=== PATIENT | female | born 1970 | race Caucasian/White ===

== ENCOUNTER → 2020-01-26 15:48 | Outpatient (CLI) | payer OTHER, SELFPAY ==
--- NOTE | ~2020-01-26 | MM_ITS ---
EXAMINATION: MM screening ada BI w anoop HISTORY: Screening mammogram TECHNIQUE: Craniocaudal and mediolateral oblique 3-D tomosynthesis images were obtained and synthetic 2-D images were generated. CAD analysis was submitted and interpreted. COMPARISON: Comparison to multiple prior studies sequentially, with oldest reviewed study dated 07/2014. BREAST PARENCHYMAL COMPOSITION: There are scattered areas of fibroglandular density. FINDINGS: There is no evidence of suspicious mass, calcification, or architectural distortion to sugg est malignancy in either breast. There has been no suspicious interval change. IMPRESSION: 1. No mammographic evidence of malignancy. 2. Recommend routine screening mammography in one year. BI-RADS Category 1: Negative Reviewed, dictated and finalized at location A.
== END ==
PROVIDERS: PCP Family Medicine; Visit Provider Obstetrics & Gynecology
DX: Z12.31 Encounter for screening mammogram for malignant neoplasm of breast (principal)
CPT/HCPCS: 77063; 77067

== ENCOUNTER 2020-04-29 15:32 | Emergency (ER) | payer OTHER, SELFPAY ==
[2020-04-29] VITALS (19 sets, daily range): BP systolic 105–138; BP diastolic 45–78; PULSE 83–122; RESP 11–35; TEMP 36.8; O2SAT 84–100
--- NOTE | ~2020-04-29 | XR_ITS ---
EXAMINATION: XR chest 2V DATE: 04/29/2020 16:18 INDICATION: Chest pain, nausea and dizziness TECHNIQUE: PA and lateral views of the chest were obtained. COMPARISON: None FINDINGS: The lungs are clear with no focal airspace opacities, pulmonary edema, pleural effusion or pneumothor ax. The cardiomediastinal silhouette is normal. Post cystectomy clips in the right upper quadrant. IMPRESSION: 1. No acute cardiopulmonary disease. Reviewed, dictated and finalized at location A.
--- NOTE | 2020-04-29 15:35 | ECG_ITS ---
Measurements Intervals [place] Rate: 120 P: 57 AR: 151 QRS: 67 QRSD: 115 T: 59 QT: 328 QTc: 465 Interpretive Statements SINUS TACHYCARDIA INTRAVENTRICULAR CONDUCTION DELAY ABNORMAL ECG Electronically Signed On 04-30-2020 8:20:53 CDT by Man Leung D.O.
[2020-04-29 15:50] LABS: Basophils Absolute Auto 0.1 K/mm3 (0.0-0.1); Basophils Percent Auto 0.5 % (0.2-1.2); Eosinophils Absolute Auto 0.2 K/mm3 (0-0.3); Eosinophils Percent Auto 1.9 % (0-4.4); Hematocrit 39.8 % (37.0-47.0); Hemoglobin 14.1 g/dL (12.0-15.0); Immature Granulocyte Absolute 0.02 K/mm3 (0.00-0.031); Immature Granulocyte Percent A 0.2 % (0-0.5); Lymphocytes Absolute Auto 2.82 K/mm3 (0.9-3.2); Lymphocytes Percent Auto 25.5 % (18.3-44.2); Mean Corpuscular HGB Conc 35.4 g/dl (32-36); Mean Corpuscular Hemoglobin 31.8 pg (26-34); Mean Corpuscular Volume 89.6 fl (80-100); Mean Platelet Volume 9.8 fl (7.4-10.4); Monocytes Absolute Auto 0.9 K/mm3 (0.1-0.6); Monocytes Percent Auto 8.3 % (2.6-8.5); Neutrophils Absolute Auto 7.1 K/mm3 (1.3-6.7); Neutrophils Percent Auto 63.6 % (45.5-73.1); Platelet Count Result 217 k/mm3 (150-375); Red Blood Count 4.44 M/mm3 (4.2-5.4); Red Cell Distribution Width 12.4 % (11.5-14.5); White Blood Count 11.1 K/mm3 (4.5-10.0)
--- NOTE | 2020-04-29 15:50 | ED.CHESTPAIN ---
HPI - Chest Pain General Chief Complaint: Chest Pain Stated Complaint: cp/nausea Time Seen by Provider: 04/29/20 15:40 Source: RN notes reviewed History of Present Illness HPI narrative: Patient presents emergency department from home for heart racing and chest pain. Patient states approximately 45 minutes prior to arrival she began to feeling like her heart was racing as well as some chest pressure and feeling of shortness of breath. She also noticed tingling in her upper and lower extremities and some nausea. States she has a history of anxiety and took a Xanax at that time 0.5 mg as she did feel very anxious. She denies any fevers or chills vomiting diarrhea or any other symptoms. Related Data Allergies Allergy/AdvReac Type Severity Reaction Status Date / Time No Known Allergies Allergy Verified 04/29/20 15:40 Review of Systems Review of Systems: Narrative: Gen.: Denies fevers or chills Eyes: Denies eye pain or visual change ENT: Denies congestion Respiratory: For shortness of breath CV: See HPI GI: Denies abdominal pain emesis or diarrhea, reports nausea Musculoskeletal: Denies back pain or muscle pain Neuro: Denies numbness, tingling, weakness or focal weakness Skin: Denies rash Except as documented, all other systems reviewed and negative [facility] Past Medical History Medical History (Updated 04/30/20 @ 00:00 by Gerardo Damyke) Anxiety Family History Family History (Updated 10/19/13 @ 14:36 by DOCTOR UNKNOWN) Other Family history of Hodgkin's lymphoma Social History Social History Smoking status: Never smoker Alcohol intake: current Exam Narrative: Exam Narrative: APPEARANCE: Anxious in appearance nontoxic, resting in bed EYES: EOMI HEENT: Normocephalic, atraumatic, OMM RESPIRATORY: No respiratory distress Clear to auscultation bilaterally with no rhonchi wheezing or rales. CARDIOVASCULAR: Regular rate and rhythm without murmurs rubs or gallops. ABDOMINAL: Soft, nontender, nondistended, no rebound or guarding MUSCULOSKELETAl: Moves all extremities. No clubbing, cyanosis or edema. NEURO: Awake and alert. Following commands, speech normal, no focal deficits SKIN:: Warm, dry. No rashes lesions or abrasions PSYCHIATRIC: Anxious in appearance Course Course Emergency Course: Patient states symptoms have resolved following fluids I did not administer any further antianxiety medicine as she had just taken her 0.5 mg Xanax at home Discussed with patient results of workup and diagnosis. Discussed need for follow-up with primary care, proper use of medication, and reasons to return to the emergency department. Patient understands and agrees to current treatment plan Vital Signs Vital signs: Vital Signs Temperature 98.3 F 04/29/20 15:35 Pulse Rate 122 H 04/29/20 15:35 Respiratory Rate 18 04/29/20 15:35 Pulse Oximetry 100 04/29/20 15:35 Temperature 98.3 F 04/29/20 15:35 Pulse Rate 83 04/29/20 19:30 Respiratory Rate 16 04/29/20 19:30 Blood Pressure 111/68 04/29/20 19:30 Pulse Oximetry 99 04/29/20 19:30 MDM - Chest Pain MDM Narrative Medical decision making narrative: Patient's EKGs and labs are without significant high risk changes. Cardiac risk factors reviewed. Patient is felt likely low risk for ACS and reasonable for further risk stratification testing as an outpatient. Pain was not sudden or maximal in onset without tearing or ripping quality. No other signs of symptoms suggest aortic dissection. A low-risk Wells criteria is noted, PE is felt to be unlikely. No pneumonia seen on evaluation today. Patient is felt to be a reasonable candidate for continued evaluation as an outpatient Lab Data Result diagrams: 04/29/20 15:42 04/29/20 15:42 Labs: Lab Results 04/29/20 04/29/20 04/29/20 Range/Units 15:42 15:42 15:42 WBC 11.1 H (4.5-10.0) K/mm3 RBC 4.44 (4.2-5.4) M/mm3
--- NOTE | 2020-04-29 15:53 | PC.NURSE ---
Called lab to add on hepatic, d dimer, and lip
[2020-04-29] MEDS: SODIUM CHLORIDE 0.9% IV 1,000 ML 999 ML IV CONT ×2 (15:54→17:59)
[2020-04-29] MEDS: ASPIRIN 81 MG CHEWABLE TABLET 324 MG PO (15:54)
[2020-04-29 15:57] LABS: Prothrombin Time 13.1 Seconds (11.1-14.7)
[2020-04-29 15:58] LABS: Partial Thromboplastin Time 30.7 SECONDS (22.3-36.8)
[2020-04-29 16:00] LABS: Alanine Aminotransferase 16 U/L (4-35); Albumin Level 4.2 g/dL (3.5-5.1); Alkaline Phosphatase 58 U/L (38-126); Anion Gap 9 mmol/L (8-16); Aspartate Amino Transferase 22 U/L (14-36); Bilirubin,Total 0.6 mg/dL (0.2-1.3); Blood Urea Nitrogen 18 mg/dL (7-17); Calcium 9.4 mg/dL (8.4-10.2); Carbon Dioxide 27 mmol/L (22-30); Chloride 101 mmol/L (98-107); D Dimer 0.45 ug/mL (<0.48); Estimated CRCL calculation 76 ml/min; Estimated Glomerular Filt Rate > 60; Glucose 138 mg/dL (65-105); Lipase 73 U/L (23-300); Potassium 2.9 mmol/L (3.4-5.0); Sodium 137 mmol/L (137-145)
[2020-04-29 16:11] LABS: Troponin I < 0.012 ng/mL (0.000-0.034)
[2020-04-29 16:26] LABS: Add Urine Microscopic? YES; Appearance Urine Clear (Clear); Bilirubin Urine Negative (Negative); Blood Urine 2+ (Negative); Color Urine Yellow (Yellow); Glucose Urine UA Negative (Negative); Ketones Urine Negative (Negative); Leukocyte Esterase Ur Negative LEU/UL (Negative); Mucus Urine Heavy /lpf; Nitrate Urine Negative (Negative); Protein Urine Negative (Negative); Specific Grav Ur 1.021 (1.001-1.035); Squamous Epithelial Cell Urine Moderate /hpf (Few); Urobilinogen Urine Negative mg/dL (<2.0); WBC Urine 0-3 /hpf
[2020-04-29] MEDS: POTASSIUM CHLORIDE 20 MEQ TABLET 40 MEQ PO (16:31)
[2020-04-29 19:08] LABS: Troponin I < 0.012 ng/mL (0.000-0.034)
== END 2020-04-29 20:11 | disposition home or self-care (01) ==
PROVIDERS: Emergency Medicine; Emergency Provider Emergency Medicine; PCP Family Medicine
DX: R07.9 Chest pain, unspecified (principal); F41.9 Anxiety disorder, unspecified; R00.0 Tachycardia, unspecified; I45.89 Other specified conduction disorders
CPT/HCPCS: 36415; 71046; 80048; 80076; 81001; 83690; 84484; 85025; 85380; 85610; 85730; 93005; 96360; 96361; 99284; A9270; J7030

== ENCOUNTER 2020-06-15 16:28 | Outpatient (CLI) | payer OTHER, SELFPAY ==
--- NOTE | ~2020-06-15 | XR_ITS ---
XR hip LT min 2V DATE: 06/15/2020 16:52 INDICATION: Acute left hip pain, left lower extremity pain, left calf pain TECHNIQUE: AP, lateral, crosstable lateral views of left hip COMPARISON: None FINDINGS: No fracture or dislocation, avascular necrosis or bone destruction. The left hip joint spac e is well preserved. The pubic symphysis and sacroiliac joints appear intact. Surgical clips overlie the right lower quadrant. IMPRESSION: Negative left hip Reviewed, dictated and finalized at location B. RAL WAREHOUSE ASSOCIATE IMPRESSION: Negative left hip
--- NOTE | ~2020-06-15 | XR_ITS ---
XR knee LT 2V DATE: 06/15/2020 16:52 INDICATION: Left knee pain, left calf pain TECHNIQUE: AP and lateral views COMPARISON: None FINDINGS: No fracture or dislocation or joint effusion. No periosteal reaction or bone destruction. N o radiopaque intra-articular loose body or chondrocalcinosis. Joint spaces are well preserved. IMPRESSION: No significant abnormality Reviewed, dictated and finalized at location B. GE HOOKER IMPRESSION: No significant abnormality
== END 2020-06-15 16:29 | disposition home or self-care (01) ==
PROVIDERS: PCP Family Medicine; Visit Provider Family Medicine
DX: M25.562 Pain in left knee (principal); M79.605 Pain in left leg; M79.662 Pain in left lower leg
CPT/HCPCS: 73502; 73560

== ENCOUNTER 2020-06-29 15:58 | Outpatient (CLI) | payer OTHER, SELFPAY ==
[2020-07-02 20:05] LABS: Testosterone Total 26 ng/dL (2-45)
== END 2020-06-29 15:59 | disposition home or self-care (01) ==
LOC: ANHLAB 16:07
PROVIDERS: PCP Family Medicine
DX: R53.83 Other fatigue (principal)
CPT/HCPCS: 36415; 84403

== ENCOUNTER 2020-11-10 16:00 | Outpatient (CLI) | payer OTHER, SELFPAY | END 2020-11-10 16:01 | disposition home or self-care (01) | LOC: ANHCOVIDVC 16:00 | PROVIDERS: PCP Family Medicine | DX: Z23 Encounter for immunization (principal) | CPT/HCPCS: 0001A; 91300 ==

== ENCOUNTER 2020-12-01 16:00 | Outpatient (CLI) | payer OTHER, SELFPAY | END 2020-12-01 16:01 | disposition home or self-care (01) | LOC: ANHCOVIDVC 16:00 | PROVIDERS: PCP Family Medicine | DX: Z23 Encounter for immunization (principal) | CPT/HCPCS: 0002A; 91300 ==

== ENCOUNTER 2021-03-14 10:03 | Emergency (ER) | payer OTHER, SELFPAY ==
[2021-03-14 10:18] VITALS: BP 116/84; PULSE 80; RESP 16; TEMP 36.3; O2SAT 99
--- NOTE | 2021-03-14 10:22 | ED.FEMALEGU ---
HPI - Female Genitourinary General Chief complaint: Urogenital-Female Stated complaint: uti Source: patient and RN notes reviewed History of Present Illness HPI Narrative: This is a 50-year-old female presents to urgent care with 2 different complaints she notes that her anal area has some discomfort she also notes that she has pain to her right groin area that radiates to her lower back. Patient notes that she does have a history of lower back pain she also notes that her appendix as well as her gallbladder has been removed no CVA tenderness. Patient denies any signs and symptoms of acute urinary tract infection such as hematuria dysuria or urgency or frequency. Patient notes that she was cutting down a tree a couple weeks ago but does not think that is the cause of her source of pain. Patient is able to move extremities with full range of motion. She has not lost sensations or neuro neuro vascular deficiency noted. The patient denies SOB, CP, palpitation, extremity numbness, lightheadedness, dizziness, constipation, diarrhea, chills, or fever. Patient denies any STDs or pregnancies. Patient being discharged with strain or sprain to right thigh area and hemorrhoids MD elicited complaint: back pain Related Data Home Medications Medication Instructions Recorded Confirmed alprazolam 0.5 mg PO DAILY PRN 03/14/21 03/14/21 escitalopram oxalate 10 mg PO DAILY 03/14/21 03/14/21 Allergies Allergy/AdvReac Type Severity Reaction Status Date / Time hydrocodone Allergy Mild Itching Verified 03/14/21 11:06 ciprofloxacin AdvReac Intermediate Nausea and Verified 03/14/21 11:05 Vomiting metronidazole AdvReac Mild Nausea Verified 03/14/21 11:05 Review of Systems Review of Systems: A 14 organ system Review of Systems was performed and pertinent positives included in the HPI, otherwise remaining ROS is negative. [facility] Past Medical History Medical History (Updated 03/14/21 @ 11:06 by IGOR Blackburn) Anxiety Family History Family History (Updated 10/19/13 @ 14:36 by DOCTOR UNKNOWN) Other Family history of Hodgkin's lymphoma Social History Social History Smoking status: Never smoker Alcohol intake: current Exam Narrative: GENERAL: This is a well-nourished, well-developed patient, in no apparent distress. HEAD: normocephalic, atraumatic. EYES: PERRL. Sclera clear/white. Vision is grossly intact. EARS: External ears normal, auditory canals clear and without drainage, TMs normal without perforation. Hearing grossly intact. NOSE: External nose normal with no obvious nasal discharge, nares without redness, no rhinorrhea. THROAT: Mucous membranes moist, posterior pharynx clear. NECK: Neck supple, non-tender without lymphadenopathy, masses or thyromegaly. CARDIOVASCULAR: Regular rate and rhythm without murmurs, gallops, or rubs. RESPIRATORY: Clear to auscultation. Breath sounds equal bilaterally. No wheezes, rales, or rhonchi. GASTROINTESTINAL: Abdomen soft, non-tender, nondistended. Bowel sounds are active. No hepato-splenomegaly, or palpable masses. No guarding. Protruding hemorrhoid in the anal area SKIN: warm, intact with no suspicious lesions or rash, good texture and turgor. NEURO: awake, alert, and oriented to person, place and time. There were no obvious focal neurologic abnormalities. Steady gait EXTREMITIES: Normal range of motion, sensations positive, pulses are palpable no edema. No calf tenderness. Negative Homans sign bilaterally. Patient has full range of motion is with both extremities does note discomfort with flexion of leg bilateral patient is currently seeing a neurologist for her left leg numbness. Patient's inner right thigh muscle feels more tense than the opposite. BACK: Nontender without deformity or crepitance. No flank tenderness. Course Course Emergency Course: Patient will discharge home with muscle relaxers anti-inflammatory predni
== END 2021-03-14 11:12 | disposition home or self-care (01) ==
PROVIDERS: Emergency Provider Nurse Practitioner; PCP Family Medicine
DX: S89.81XA Other specified injuries of right lower leg, initial encounter (principal); X58.XXXA Exposure to other specified factors, initial encounter; S86.911A Strain of unspecified muscle(s) and tendon(s) at lower leg level, right leg, initial encounter; K64.9 Unspecified hemorrhoids; F41.9 Anxiety disorder, unspecified
CPT/HCPCS: 81003; 87086; 99213; G0463

== ENCOUNTER → 2021-11-13 08:44 | Outpatient (CLI) | payer OTHER, SELFPAY ==
--- NOTE | ~2021-11-13 | MR_ITS ---
EXAMINATION: MR hip LT wo con DATE: 11/13/2021 09:28 INDICATION: Left hip pain TECHNIQUE: Magnetic resonance imaging (MRI) of the left hip was performed without intravenous contra st. Sequences included full-field axial PD-weighted FS FSE and T1-weighted FSE, coronal of the pelvis with PD-weighted FS FSE, T2-weighted FSE and T1-weighted FSE, small field of view of the left hip w ith axial PD-weighted FS FSE, sagittal PD-weighted FS FSE, coronal PD-weighted FS FSE and coronal T2 weighted FSE. Additional radial T1-weighted FGR oriented orthogonal to the acetabular rim were obtai laura for evaluation of the labrum. COMPARISON: None FINDINGS: Bones/labrum/cartilage: Alignment is normal. No fracture, avascular necrosis or pathologic marrow replacing process. There a re tears of the anterosuperior and posterosuperior left acetabular labrum. Mild osteoarthritis at the left hip with is nonuniform mild partial-thickness cartilage loss with smooth chondral surface is pr ominent at the posterior and posterosuperior margin of the joint space. Fluid: Symmetric physiologic amount of fluid within both hip joints. Soft tissues: Normal and symmetric muscle bulk and signal in the pelvis and visualized proximal thighs. The iliopso as, gluteal and proximal hamstring tendons are normal. 1.9 cm T2 hyperintense nabothian cyst at the c ervix. Limited evaluation of visceral organs of the pelvis is otherwise unremarkable. No pathologica lly enlarged pelvic/inguinal lymphadenopathy. IMPRESSION: 1. Mild left hip osteoarthritis with tear of the anterosuperior and posterosuperior acetabular labrum . Reviewed, dictated and finalized at location A. IMPRESSION: 1. Mild left hip osteoarthritis with tear of the anterosuperior and posterosupe rior acetabular labrum.
== END ==
PROVIDERS: PCP Family Medicine; Visit Provider Orthopaedic Surgery
DX: M16.12 Unilateral primary osteoarthritis, left hip (principal)
CPT/HCPCS: 73721

== ENCOUNTER → 2022-12-13 11:01 | Outpatient (CLI) | payer OTHER, SELFPAY ==
--- NOTE | ~2022-12-13 | CT_ITS ---
EXAMINATION: CT abdomen pelvis wo con DATE: 12/13/2022 11:20 INDICATION: Microscopic hematuria. Low back pain. TECHNIQUE: Computed tomography (CT) of the abdomen and pelvis was performed without intravenous contr ast. Automated exposure control and iterative reconstruction technique were employed. The dose-length product was 502.53 mGy-cm. COMPARISON: CT abdomen and pelvis 05/19/2014 FINDINGS: The visualized portions of the lung bases demonstrate minimal atelectasis on the right. No pleural effusion. The heart size is normal. No pericardial effusion. The liver is normal. There are c hanges of cholecystectomy. The spleen, pancreas, adrenal glands, and kidneys are normal. There is no urolithiasis. There are changes of appendectomy. There are no pathologically enlarged lymph nodes. Th ere is no free intraperitoneal fluid. There is a 12 mm nabothian cyst in the cervix. There is mild danielle mbar spondylosis. IMPRESSION: 1. No etiology for hematuria. Reviewed, dictated and finalized at location A.
== END ==
PROVIDERS: PCP Family Medicine; Visit Provider Family Medicine
DX: M54.50 Low back pain, unspecified (principal)
CPT/HCPCS: 74176

== ENCOUNTER → 2023-05-06 14:43 | Outpatient (CLI) | payer OTHER, SELFPAY ==
--- NOTE | ~2023-05-06 | MM_ITS ---
EXAMINATION: MM screening ada BI w anoop HISTORY: Screening mammogram TECHNIQUE: Craniocaudal and mediolateral oblique 3-D tomosynthesis images were obtained and synthetic 2-D images were generated. CAD analysis was submitted and interpreted. COMPARISON: 01/26/2020, 01/08/2019 bilateral screening mammogram examinations BREAST PARENCHYMAL COMPOSITION: There are scattered areas of fibroglandular density. FINDINGS: There is no evidence of suspicious mass, calcification, or architectural distortion to sugg est malignancy in either breast. There has been no suspicious interval change. IMPRESSION: 1. No mammographic evidence of malignancy. 2. Recommend routine screening mammography in one year. BI-RADS Category 1: Negative Reviewed, dictated and finalized at location A.
== END ==
PROVIDERS: PCP Obstetrics & Gynecology; Visit Provider Obstetrics & Gynecology
DX: Z12.31 Encounter for screening mammogram for malignant neoplasm of breast (principal)
CPT/HCPCS: 77063; 77067

== ENCOUNTER 2023-06-03 15:28 | Outpatient (CLI) | payer OTHER, SELFPAY ==
--- NOTE | ~2023-06-03 | XR_ITS ---
EXAM: XR hand LT 2V, XR hand RT 2V, XR wrist RT 2V, XR wrist LT 2V DATE: 06/03/2023 15:58 HISTORY: MULTIPLE JOINT PAIN . COMPARISON: None available. FINDINGS: Normal mineralization. No fracture or dislocation. No lytic or blastic lesion. Joint space s are maintained. No erosion or periosteal change. Soft tissues within normal limits. IMPRESSION: Normal radiograph findings in the bilateral hands and wrists. Reviewed, dictated and finalized at location K. NG BOOKKEEPER IMPRESSION: Normal radiograph findings in the bilateral hands and wrists. IMPRESSION: Normal radiograph findings in the bilateral hands and wrists. IMPRESSION: Normal radiograph findings in the bilateral hands and wrists.
--- NOTE | ~2023-06-03 | XR_ITS ---
EXAMINATION: XR ankle LT 2V, XR foot LT 2V, XR foot RT 2V, XR ankle RT 2V DATE: 06/03/2023 15:58 INDICATION: Multiple joint pain at the bilateral feet and ankles TECHNIQUE: 1. Anteroposterior and lateral view of the left ankle were obtained. 2. Dorsoplantar and lateral views of the left foot were obtained. 3. Anteroposterior and lateral view of the right ankle were obtained. 4. Dorsoplantar and lateral views of the right foot were obtained. COMPARISON: None. FINDINGS: Alignment of the bilateral feet and ankles is normal. No fracture or osteochondral lesion. Joint spac es are well maintained bilaterally. No erosions. Moderate sized left and small right plantar calcanea l spurs. No ankle joint effusions. The soft tissues are unremarkable. IMPRESSION: 1. Small right-sided and moderate left-sided plantar calcaneal spurs. Otherwise unremarkable bilatera l feet and ankle radiographs. Reviewed, dictated and finalized at location A. ON CANDY MAKER IMPRESSION: 1. Small right-sided and moderate left-sided plantar calcaneal spurs. Otherwise unremarkable bilateral feet and ankle radiographs. IMPRESSION: 1. Small right-sided and moderate left-sided plantar calcaneal spurs. Otherwise unremarkable bilateral feet and ankle radiographs. IMPRESSION: 1. Small right-sided and moderate left-sided plantar calcaneal spurs. Otherwise unremarkable bilateral feet and ankle radiographs.
--- NOTE | ~2023-06-03 | XR_ITS ---
AP and oblique views of the bilateral SI joints CLINICAL HISTORY: Joint pain FINDINGS: Bilateral SI joints are intact. Bilateral hip joints are intact. No erosive or inflammatory change evident. Soft tissues are unremarkable. IMPRESSION: Unremarkable exam. Reviewed, dictated and finalized at location M. GENCY DOCTOR IMPRESSION: Unremarkable exam.
== END 2023-06-03 15:29 | disposition home or self-care (01) ==
PROVIDERS: PCP Family Medicine
DX: M77.32 Calcaneal spur, left foot (principal); M77.31 Calcaneal spur, right foot
CPT/HCPCS: 72202; 73100; 73120; 73600; 73620

== ENCOUNTER 2024-07-07 08:03 | Emergency (ER) | payer OTHER, SELFPAY ==
[2024-07-07 08:50] VITALS: BP 122/62; PULSE 87; RESP 16; TEMP 36.6; O2SAT 99
--- NOTE | 2024-07-07 09:20 | ED_ITS ---
HPI - URI/Sore Throat General Chief Complaint: Upper Respiratory Infection Stated Complaint: cold symptoms Time Seen by Provider: 07/07/24 09:10 Source: patient and RN notes reviewed Mode of arrival: ambulatory Limitations: no limitations History of Present Illness HPI Narrative: Patient presents today complaining of 4 day history of sore throat, productive cough, chest congestion, chest wall pain with coughing, fatigue. Denies fever, nasal congestion rhinorrhea, shortness of breath. She has tried DayQuil, NyQuil, Tylenol without much relief. No history of asthma or COPD. She is a nonsmoker. She has had a negative COVID test at home. Denies any known sick contacts. Related Data Home Medications ?Medication ?Instructions ?Recorded ?Confirmed ?Last Taken ?Type alprazolam 0.5 mg tablet 0.5 mg PO DAILY PRN Anxiety 03/14/21 02/09/24 Unknown History duloxetine 20 mg capsule,delayed 20 mg PO BID 02/09/24 02/09/24 Unknown History release (Cymbalta) pantoprazole 40 mg tablet,delayed 40 mg PO QAM 02/09/24 02/09/24 Unknown History release thyroid (pork) 30 mg tablet (AFTER SCHOOL PROGRAM DIRECTOR mg 07/07/24 Unknown History Thyroid) Allergies Allergy/AdvReac Type Severity Reaction Status Date / Time hydrocodone Allergy Mild Itching Verified 07/07/24 08:49 ciprofloxacin AdvReac Intermediate Nausea and Verified 07/07/24 08:49 Vomiting metronidazole AdvReac Mild Nausea Verified 07/07/24 08:49 Review of Systems Review of Systems: CONSTITUTIONAL: Denies body aches, fever, chills, or sweats.+ fatigue EYES: Denies visual changes, redness, or discharge. ENT: Denies rhinorrhea, congestion, or otalgia.+ sore throat CARDIOVASCULAR: Denies chest pain, palpitations, or edema. RESPIRATORY: Denies dyspnea.+ cough, chest congestion, chest wall pain GASTROINTESTINAL: Denies abdominal pain, nausea, vomiting, or diarrhea. GENITOURINARY: Denies dysuria or hematuria. SKIN: Denies rash, itching, or wounds. MUSCULOSKELETAL: Denies back pain, joint pain, or myalgia. NEUROLOGIC: Denies headache, numbness, tingling, or weakness. PSYCH: Denies depression or anxiety. [facility] Past Medical History Medical History Screening mammogram, encounter for Abnormal Pap smear of cervix 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 Normal colonoscopy 04/19/08 06/23/18 negative rpt in 10 years Gallstones (~2017) Staph infection (~2007) buttocks Frequent headaches Herpes simplex type 2 infection Seizures age 6 y/o History of stress test History of injury of tendon (~2015) Left shoulder torn labrum Anxiety Surgical History Surgical History H/O shoulder replacement (08/28/23) left shoulder History of cholecystectomy History of shoulder surgery (08/24/15) History of laparoscopy 09/17/07 dx lscope--ablation, endometriosis History of cone biopsy of cervix 04/13/96 History of colposcopy with cervical biopsy 03/15/96 LSGSIL JESUS I History of reconstruction of anterior cruciate ligament tear (~1987) rt knee History of cholecystectomy (03/10/19) History of appendectomy (04/19/14) Family History Family History Other Carcinoma of colon paternal uncle Malignant tumor of ovary paternal aunt Father Skin cancer Aneurysm Sibling Diabetes mellitus brother Hypertension brother Mother Hypertension Other Anxiety Autosomal recessive severe combined immunodeficiency disease COPD (chronic obstructive pulmonary disease) Family history of Hodgkin's lymphoma Heart disease Hyperlipidemia Social History Social History Smoking status: Never smoker Second hand tobacco smoke exposure: No Alcohol intake: current Alcohol use details: 2 days a week Substance use: never Substance use type: does not use Do You Feel Safe in your Home?: Yes Lack of Transportation: No Lack of Food: Never True Current Housing: I Have Housing Concerned About Future Housing: No Difficulty Paying Gas/Electric Bills: No Difficulty Paying for Meds: No Currently Unemployed: No Education: High School Diploma/GED Difficulty w/ Childcare or Family Care: No Living arrangements: with family Additional living arrangements comments: Occupation/Education: occupation 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 Please see nursing chart for further information. There is no relevant family history pertinent to the presenting complaint Exam Narrative: GENERAL: Mildly ill-appearing, well-nourished, and in no acute distress. HEAD: Normocephalic, atraumatic. EYES: EOMI. No redness or drainage. Conjunctivae normal. ENT: Mucous membranes pink and moist. Nares clear. No rhinorrhea. TMs normal bilaterally. Throat normal. Uvula midline. NECK: Normal AROM. Supple. No lymphadenopathy. CHEST: No respiratory distress. Clear to auscultation. HEART: Regular rate and rhythm. No murmur appreciated. EXTREMITIES: Normal range of motion. No edema. SKIN: Warm, dry, no rash. Capillary refill normal. Normal skin turgor. NEURO: No focal deficits. Alert and oriented x3. Gait steady. PSYCH: Normal affect. No signs of depression or anxiety. Course Course Level of Care: Express Care Visit Vital Signs Vital signs: Vital Signs Temperature 97.9 F 07/07/24 08:50 Pulse Rate 87 07/07/24 08:50 Respiratory Rate 16 07/07/24 08:50 Blood Pressure 122/62 07/07/24 08:50 Pulse Oximetry 99 07/07/24 08:50 Oxygen Delivery Room Air 07/07/24 08:50 Temperature 97.9 F 07/07/24 08:50 Pulse Rate 87 07/07/24 08:50 Respiratory Rate 16 07/07/24 08:50 Blood Pressure 122/62 07/07/24 08:50 Pulse Oximetry 99 07/07/24 08:50 Oxygen Delivery Room Air 07/07/24 08:50 Reviewed MDM - URI/Sore Throat MDM Narrative Medical decision making narrative: Symptoms likely viral in etiology. Discussed [id number] medication use and duration of illness. Patient will be treated with a course of Cheratussin to be taken at night as her cough is keeping her up at night. Anticipatory guidance given. Differential Diagnosis Differential diagnosis: Likely upper respiratory infection, viral infection, bronchitis and other (Pneumonia) Critical Care Time Critical Care Time Critical Care Time: No Discharge Plan Discharge Clinical Impression: Viral syndrome Patient Disposition: Home, Self-Care Condition: Stable Instructions: Viral Syndrome (ED) Additional Instructions: Your symptoms are likely due to a viral illness, which is not treated with antibiotics. Virus symptoms can last for up to 7-10days. Take Tylenol or ibuprofen for pain or fever. Consider starting Mucinex during the day to help you cough up your secretions. Take the Cheratussin at night to help suppress your cough. Do not drive within 6 hours of taking the Cheratussin as it can make you drowsy. Rest and stay hydrated. Follow up with your PCP in 7 days if symptoms are not improving. Go to the ER immediately if you develop shortness of breath, difficulty swallowing, or any other concerning symptoms. Your blood pressure was elevated above 120/80 today at Urgent Care. This puts you above the threshold for follow up. Please schedule a followup visit with your personal physician as soon as possible, for further evaluation and treatment. Even blood pressure exceeding 120/80 may indicate pre-hypertension. Patient Language: Maltese Prescriptions: New codeine-guaifenesin 10-100 mg/5 mL liquid 5 ml PO Q6H PRN (Reason: cough) Qty: 120 0RF No Action alprazolam 0.5 mg tablet 0.5 mg PO DAILY PRN (Reason: Anxiety) thyroid (pork) [AFTER SCHOOL PROGRAM DIRECTOR Thyroid] 30 mg tablet pantoprazole 40 mg tablet,delayed release (DR/EC) 40 mg PO QAM duloxetine [Cymbalta] 20 mg capsule,delayed release(DR/EC) 20 mg PO BID estradiol 1 mg tablet 1 mg PO DAILY Qty: 90 3RF progesterone micronized [Prometrium] 200 mg capsule 200 mg PO QHS Qty: 90 3RF Follow-up/Referrals: Kristi,Jose Perkins MD [Primary Care Provider] - Time of Disposition: 09:26
== END 2024-07-07 09:30 | disposition home or self-care (01) ==
PROVIDERS: Emergency Provider Nurse Practitioner; PCP Family Medicine
DX: B34.9 Viral infection, unspecified (principal); F41.9 Anxiety disorder, unspecified
CPT/HCPCS: 99213; G0463

== ENCOUNTER 2024-08-27 23:56 | Emergency (ER) | payer OTHER, SELFPAY ==
--- OUTSIDE RECORDS SUMMARY | 2024-08-27 23:58 | XMS_ITS | Referral Summary ---
Author Organization [facility] Address [address] [place] [address] Care Team Providers Care Roading Engineer Name Role Phone Unavailable Primary Care Provider Unavailabl e Source Comments [facility],non-owned Affiliates and Associated Physician Practices is amultiple site organization consisting of ambulatory clinics and hospital sitesin [place], [place] and [place]. This disclosure is being madepursuant to the Care Everywhere program and may not contain all information available regarding this patient. Last updated 18.[facility] Social History Tobacco Use Types Packs/Day Years Used Date Smoking Tobacco: Never Assessed Sex and Gender Information Value Date Recorded Sex Assigned at Not on file Gender Identity Not on file Sexual Orientation Not on file Plan of Treatment Not on file
--- OUTSIDE RECORDS SUMMARY | 2024-08-27 23:58 | XMS_ITS | Referral Summary ---
Author Organization [facility] [address] Address [address] [place] [address] Care Team Providers Care Lumber Checker Name Role Phone Jose Berry MD Primary Care Provider [phone] Encounters Date Type Department Care Team Description 08/03/2024 3:30 PM GATHERING MACHINE FEEDER Telemedicine [facility] Medical [facility] Family Medicine at [address] [place] [address] Jose Berry MD Subacute cough (Primary Dx) 07/30/2024 Telephone [facility] Medicine at [address] [place] [id number] Jose Berry MD Prior Auth (Pantoprazole) from Last 3 Months Allergies Active Allergy Reactions Criticality Noted Date Comments Ciprofloxacin Nausea And Vomiting 03/10/2019 Hydrocodone Itching Low 12/11/2020 Metronidazole Nausea only Low 03/08/2019 Medications psyllium 0.52 gram capsule Take 1 capsule (0.52 g total) by mouth once a week Active ALPRAZolam (XANAX) 0.5 mg tabletIndicati ons:Anxiety Take 1 tablet by mouth twice daily as needed for anxiety 60 tablet 07/26/20 24 Active Additional Information Patient taking differently: Take 0.5 -1 tablet by mouth twice daily as needed for anxiety, Reported on 08/03/2024 budesonide-for moteroL (SYMBICORT) 160-4.5 mcg/actuation inhaler Inhale 2 puffs 2 (two) times a day Rinse mouth with water after use. Do not swallow. 1 each 07/30/19 25 Active guaiFENesin-co deine (GUAITUSS AC) liquid 100-10 mg/5 mL TAKE 5 ML BY MOUTH EVERY 6 HOURS NEEDED FOR COUGH 07/07/20 24 Active Cymbalta 20 mg capsule Take 1 capsule (20 mg total) by mouth daily 03/03/20 24 Active estradioL (ESTRACE) 1 mg tablet Take 1 tablet (1 mg total) by mouth daily Active meloxicam (MOBIC) 15 mg tablet Take 1 tablet (15 mg total) by mouth daily as needed 07/06/20 24 Active multivit with min-folic acid (One-A-Day Women's 50 Plus) 0.4 mg tablet Active progesterone (PROMETRIUM) 200 mg capsule Take 1 capsule (200 mg total) by mouth daily 08/03/19 25 Active PERFORMANCE IMPROVEMENT CONSULTANT Thyroid 30 mg tablet Take 1 tablet (30 mg total) by mouth daily 06/10/20 24 Active predniSONE (DELTASONE) 20 mg tablet Take 1 tablet (20 mg) by mouth 2 (two) times a day 10 tablet 08/03/[address] (PROTONIX) 40 mg EC tablet TAKE 1 TABLET(40 MG) BY MOUTH DAILY 100 tablet 1 08/07/[address] (PROTONIX) 40 mg EC tablet TAKE 1 TABLET(40 MG) BY MOUTH DAILY 100 tablet 04/26/20 24 025 Discontinued azithromycin (ZITHROMAX) 250 mg tablet Take 2 tabs (500 mg) by mouth today, than 1 tab (250 mg) daily for 4 days. 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 I was unable to review the actual images from the MRI today, but did read the report. I did explain to the patient that the type of lesions they reported on this MRI are most consistent with small-vessel disease. We see these in patients as AH, though they are more numerous in patients with vascular risk factors such as smoking, diabetes, hypertension, and hyperlipidemia. The patient does have hyperlipidemia. We did spend some time today discussing that. The she is not particularly interested in taking cholesterol medicine at this time and would like to try to adjust her diet in an effort to reduce her lipids. Her primary care doctor's going to recheck that in 6 months I EEG around March. I will defer that to him. We did discuss the migraine can be a risk factor for accumulation of small vessel disease. She does not report history of headaches consistent with migraines. Rather, her headaches are more consistent with ice pick headaches. They do happen daily. We discussed that these are benign headache type. There are medications that sometimes can reduce the frequency, but we also discussed the proton pump inhibitors are a common cause of headaches. At this point she takes AcipHex. She does report that, if she watches her diet, she often does not need to take a proton pump inhibitor. At this point she would rather try to make dietary changes such that she can try to reduce or discontinue that medication in an effort to see if her headaches will improve or resolve. Alternatively, obviously there are medications that can be used to reduce her headaches, such as Lamictal. Given that there are no particular concerning neurologic history or findings on the MRI, I am not going to schedule the patient to return to see me but will remain available as needed. Please do not hesitate to contact me with any concerns or questions. Thank you for consulting me in the care of your patient.This was a telemedicine visit with Ms. Arias which took place via an interactive audio and video telecommunications system. During the visit, I was located at the office and the patient was located at home. The session started at 8:40 a.m. and ended at 9:20 a.m.. The patient has been informed that the visit may not be secure and acknowledged the information. I have explained the option of participating in a telephone or video visit during the [facility]-19 public health emergency to the patient. After being given an opportunity to ask questions about and discuss this type of visit, the patient verbally consented to proceeding with the telephone/video visit. The patient understands that this service replaces an office visit and they may be billed and/or responsible for any applicable copayments. @SIGENC2@ @MO@ Panic attacks 07/22/2017 11/20/2022 Gastroesophageal reflux disease 12/11/2013 Overview (11/01/2016): GERD (gastroesophageal reflux disease) Resolved Problems Problem Noted Date Diagnosed Date Resolved Date Other chest pain 08/14/2022 08/18/2023 Palpitation 08/14/2022 08/18/2023 Acute non-recurrent frontal sinusitis 05/15/2022 12/26/2022 Acute cough 05/15/2022 12/26/2022 Gastroenteritis due to norovirus 01/13/2022 02/22/2022 Abdominal pain 01/09/2022 02/22/2022 Abnormal stools 01/09/2022 02/22/2022 Paresthesia 12/11/2020 02/22/2022 Pain of left lower extremity 06/07/2020 02/22/2022 Pain of left calf 06/07/2020 02/22/2022 Acute anxiety 07/22/2017 11/20/2022 08/18/2023 Nervousness 12/05/2015 11/20/2022 08/18/2023 GERD (gastroesophageal reflux disease) 12/05/201508/18/2023 Immunizations Name Administration Dates Next Due Hep A, Adult 12/13/2021,06/14/2021 Influenza, Quadrivalent, Tabitha l Culture-based MDCK, Preservative Free, Antibiotic Free, Intramuscular 05/07/2020 Influenza, Quadrivalent, Spl it, Preservative Free, Intramuscular 04/28/2023,05/06/2022,04/18/2021,05/14,05/16/2017 Influenza, Trivalent, IM (MDV) 05/25/2015 Influenza, Unspecified 05/11/2024,04/06/2022 PPD TEST 06/14/2021 Social History Tobacco Use Types Packs/Day Years Used Date Smoking Tobacco: Former Cigarettes 0.1 5 Smokeless Tobacco: Never Comments:Spiked socially whe n in college Alcohol Use Standard Drinks/Week Comments Yes 0 (1 standard drink = 0.6 oz pur e alcohol) AUDIT-C Answer Date Recorded Q1: How often do you have a drink containing alc ohol? Monthly or less 01/13/2024 Q2: How many drinks containi ng alcohol do you have on a typical day when you are drinking? 1 or 2 01/13/2024 Frequency of Binge Drinking Not on file 12/26 PHQ-2 Answer Date Recorded PHQ-2 Total Score (If total score is 3 or more points, staff should administer the PHQ-9) 0 12/02/2023 Comments Unknown Sex and Gender Information Value Date Recorded Sex Assigned at Not on file Legal Sex Female 2:15 AM GATHERING MACHINE FEEDER Gender Identity Female 12/15/2019 2:01 PM CDT Sexual Orientation Straight 12/15/2019 2: 01 PM CDT Last Filed Vital Signs Vital Sign Reading Time Taken Comments Blood Pressure 132/81 08/03/2024 3:13 PM GATHERING MACHINE FEEDER Pulse 76 01/13/2024 1:30 PM CDT verbal per patient Temperature 36.7 ??C (98 ??F) 12/02/2023 2:2 2 PM CDT Respiratory Rate 16 01/13/2023 11:4 1 AM CDT Oxygen Saturation 98% 08/03/2024 3:1 3 PM GATHERING MACHINE FEEDER Inhaled Oxygen Concentration - - Weight 67.1 kg (148 lb) 08/03/2024 3:13 PM GATHERING MACHINE FEEDER Height 172.7 cm (5' 8 ) 08/03/2024 3:13 PM GATHERING MACHINE FEEDER Body Mass Index 22.5 08/03/2024 3:13 PM GATHERING MACHINE FEEDER Plan of Treatment Not on file Procedures Procedure Name Priority Date/Time Associated Diagnosis Comments HM MAMMOGRAPHY Routine 06/01/2024 8:46 AM GATHERING MACHINE FEEDER COLONOSCOPY Routine 12/17/2022 1:57 PM CDT from Last 3 Months or Most Recently Relevant to Health Maintenance Results * HM MAMMOGRAPHY (06/01/2024 8:46 AM GATHERING MACHINE FEEDER) us Historical Provider HEALTH MAINTENANCE Final Result * Colonoscopy (06/17/2018) Anatomical Region Laterality Modality Other us Historical Provider ENDOSCOPY PROCEDURES Kelly l Result from Last 3 Months or Most Recently Relevant to Health Maintenance Insurance [employer] COVENTRY HMO/POS Care Teams Lumber Checker Relationship Specialty Start Date End Date Jose Berry MD [address] [place] [address] PCP - General Family Medicine 04/09/23
--- OUTSIDE RECORDS SUMMARY | 2024-08-27 23:58 | XMS_ITS | Encounter Summary ---
Author Organization [facility] Care Team Providers Care Garnisher Name Role Phone Jose eBrry MD Primary Care Provider [phone] Jose Berry MD Primary Care Provider [phone] Encounter Details Date Type Department Care Team (Latest Contact Info) Description 06/17/2018 Orders Only [facility]INCON[facility] ProviderEpi MD [address] [place] [id number] Social History Tobacco Use Types Packs/Day Years Used Date Smoking Tobacco: Never Assessed Alcohol Use Standard Drinks/Week Comments Yes 0 (1 standard drink = 0.6 oz pur e alcohol) Comments Unknown Sex and Gender Information Value Date Recorded Sex Assigned at Not on file Legal Sex Female 2:15 AM WHIP SAWYER Gender Identity Female 12/15/2019 2:01 PM CDT Sexual Orientation Straight 12/15/2019 2: 01 PM CDT documented as of this encounter Plan of Treatment Not on file documented as of this encounter Procedures Procedure Name Priority Date/Time Associated Diagnosis Comments PROCEDURE - RESULT 06/26/2018 12 :00 AM WHIP SAWYER documented in this encounter Results * PROCEDURE - RESULT (06/26/2018 12:00 AM WHIP SAWYER) Narrative 06/26/2018 12:00 AM WHIP SAWYER Ordered by an unspecified provider. us Historical Provider Final Res ult documented in this encounter Visit Diagnoses Not on filedocumented in this encounter Care Teams Garnisher Relationship Specialty Start Date End Date Jose Berry MD PCP - General 03/16/15 04/08/23 Jose Berry MD [address] [place] [address] [place] [id number] PCP - General Family Medicine 04/09/23 documented as of this encounter
--- OUTSIDE RECORDS SUMMARY | 2024-08-27 23:58 | XMS_ITS | Patient Health Summary ---
Author Organization [facility] Address [address] [place] [address] Care Team Providers Care Code Number Stamper Name Role Phone Unavailable Primary Care Provider Unavailabl e Note from [facility],non-owned Affiliates and Associated Physician Practices is amultiple site organization consisting of ambulatory clinics and hospital sitesin [place], [place], [place] and [place]. This disclosure is being madepursuant to the Care Everywhere program and may not contain all information available regarding this patient. Last updated 18.[facility] Social History Tobacco Use Types Packs/Day Years Used Date Smoking Tobacco: Never Assessed Sex and Gender Information Value Date Recorded Sex Assigned at Not on file Gender Identity Not on file Sexual Orientation Not on file Procedures * DERMATOPATHOLOGY(Performed 09/03/2022) Results * DERMATOPATHOLOGY (09/03/2022 3:33 AM MEDICAL LAB TECHNICIAN) Case Report Dermatopathology Report ? Case: [id number] ? Authorizing Provider: ??Heath Watson MD ?Collected: ? 09/03/2022 03:33 AM ? Ordering Location: ? [facility] ?Received: ?09/05/2022 09:19 AM ? Pathologist: ? Yin Harman MD ? Specimen: ?Skin, right clavicle ? 3 3:52 PM [facility]ER[facility] Final Diagnosis Specimen A. SKIN, right clavicle: SEBORRHEIC KERATOSIS, IRRITATED AND INFLAMED (L82.0) 3 3:52 PM [facility] Clinical History Irr Nevus vs. BCCA vs. Other Path# [id number] 3 3:52 PM [facility] Gross Description Specimen A: Received is one formalin filled container labeled with the patient's name and designated right clavicle. The specimen consists of a shave biopsy measuring 14x5x2 mm. Jar 0. 3 3:52 PM [facility] Microscopic Description Specimen A. SKIN, right clavicle: Sections show acanthosis, papillomatosis, hyperkeratosis, and squamous eddies. There is a lymphohistiocytic infiltrate within the papillary dermis. 3 3:52 PM [facility]ATH[facility] Disclaimer An external and internal positive and negative controls are appropriate for the histochemical, immunohistochemical and immunofluorescence stain(s) in this case (if any), except where stated explicitly. The performance characteristics of the stain(s) cited in this report were developed and its performance characteristic determined by the Dermatopathology Laboratory at [facility], directed by Dr. Kinsey Nathan. These tests need not be, and therefore are not, approved by the [place] Food and Drug Administration. The tests are used for clinical purposes. Billing Codes Specimen Charges Stain Charges 53553 1 3 3:52 PM [facility]ER[facility]OP[facility] Embedded Images 3 3:52 PM [facility] Pathology/Cytolo gy TISSUE SPECIMEN FROM SKIN / Unknown 09/03/2022 3:33 AM MEDICAL LAB TECHNICIAN 09/05/2022 9:19 AM MEDICAL LAB TECHNICIAN Heath Watson MD LAB - PATHOLOGY/CYTO LOGY ORDERABLES DERMATOPATHOLOGY LABORATORY [facility] - Department of Dermatology [facility] Specialized Medicine [address] [place] [address], [address] [phone]
--- OUTSIDE RECORDS SUMMARY | 2024-08-27 23:58 | XMS_ITS | Encounter Summary ---
Author Organization [facility] Facility Care Team Providers Care Music Instructor Name Role Phone Jose Brery MD Primary Care Provider [phone] Jose Berry MD Primary Care Provider [phone] Encounter Details Date Type Department Care Team (Latest Contact Info) Description 08/28/2016 Orders Only [facility] CLINCONV ProviderEpi MD [address] [place] [id number] Social History Tobacco Use Types Packs/Day Years Used Date Smoking Tobacco: Never Assessed Alcohol Use Standard Drinks/Week Comments Yes 0 (1 standard drink = 0.6 oz pur e alcohol) Comments Unknown Sex and Gender Information Value Date Recorded Sex Assigned at Not on file Legal Sex Female 2:15 AM J2EE CONSULTANT Gender Identity Female 12/15/2019 2:01 PM CDT Sexual Orientation Straight 12/15/2019 2: 01 PM CDT documented as of this encounter Plan of Treatment Not on file documented as of this encounter Procedures Procedure Name Priority Date/Time Associated Diagnosis Comments SCAN - LABS 08/29/2016 12:00 AM J2EE CONSULTANT documented in this encounter Results * SCAN - LABS (08/29/2016 12:00 AM J2EE CONSULTANT) Narrative 08/29/2016 12:00 AM J2EE CONSULTANT Ordered by an unspecified provider. us Historical Provider Final Res ult documented in this encounter Visit Diagnoses Not on filedocumented in this encounter Care Teams Music Instructor Relationship Specialty Start Date End Date Jose Berry MD PCP - General 03/16/15 04/08/23 Jose Berry MD [address] [facility] [place] [address] [place] [id number] PCP - General Family Medicine 04/09/23 documented as of this encounter
--- OUTSIDE RECORDS SUMMARY | 2024-08-27 23:58 | XMS_ITS | Referral Summary ---
Author Organization [facility] Address [address] [place] [id number] Care Team Providers Care Acute Dialysis Nurse Name Role Phone Unavailable Primary Care Provider Unavailabl e Allergies No known active allergies Medications Medication Sig Dispensed Refills Start Date End Date Status LIDOCAINE HCL 2 % EX GEL apply to affected area as needed for discomfort qs 0 09/03/2002 Active GYNAZOLE-1 2 % VA CREA PV x 1 noc 1 0 09/03/2002 Active Social History Tobacco Use Types Packs/Day Years Used Date Smoking Tobacco: Never Alcohol Use Standard Drinks/Week Comments Yes 0 (1 standard drink = 0.6 oz pur e alcohol) social Sexually Active Control Partners Comments Yes Condom Male Sex and Gender Information Value Date Recorded Sex Assigned at Not on file Gender Identity Not on file Sexual Orientation Not on file Last Filed Vital Signs Vital Sign Reading Time Taken Comments Blood Pressure 112/74 09/16/2002 9:45 AM LIFE EDUCATOR Pulse - - Temperature - - Respiratory Rate - - Oxygen Saturation - - Inhaled Oxygen Concentration - - Weight 63.5 kg (140 lb) 09/16/2002 9:45 AM LIFE EDUCATOR Height - - Body Mass Index - - Plan of Treatment Not on file
--- OUTSIDE RECORDS SUMMARY | 2024-08-27 23:58 | XMS_ITS | Clinical Summary ---
Author Organization [facility] [address] Address [address] [place] [address] Care Team Providers Care Recreation Program Specialist Name Role Phone Jose Berry MD Primary Care Provider [phone] Allergies Active Allergy Reactions Criticality Noted Date [...] total) by mouth daily 08/03/19 25 Active TRANSPORTATION DIRECTOR Thyroid 30 mg tablet Take 1 tablet [...] a telephone or video visit during the COVID-19 public health emergency to the patient. After being given an opportunity to ask questions about and discuss this type of visit, the patient verbally consented to proceeding with the telephone/video visit. The patient understands that this service replaces an office visit and they may be billed and/or responsible for any applicable copayments. [email or web address] @[place]@ Panic attacks 07/22/2017 11/20/2022 Gastroesophageal reflux disease [...] 11/20/2022 08/18/2023 GERD (gastroesophageal reflux disease) 12/05/201508/18/2023 Encounters Date Type Department Care Team Description 08/03/2024 3:30 PM REGISTERED TRAVEL NURSE Telemedicine [facility] Family Medicine at [address] [phone] Jose Berry MD Subacute cough (Primary Dx) 07/30/2024 Telephone [facility] Medicine at [address] [place] [phone] Jose Berry MD Prior Auth (Pantoprazole) from Last 3 Months Immunizations Name Administration Dates Next Due Hep A, Adult 12/13/2021,06/14/2021 Influenza, Quadrivalent, Tabitha l Culture-based MDCK, Preservative Free, Antibiotic Free, Intramuscular 05/07/2020 Influenza, Quadrivalent, Spl it, Preservative Free, Intramuscular 04/28/2023,05/06/2022,04/18/2021,05/14,05/16/2017 Influenza, Trivalent, IM (MDV) 05/25/2015 Influenza, Unspecified 05/11/2024,04/06/2022 PPD TEST 06/14/2021 Surgical History Surgery Date Site/Laterality Comments KNEE ARTHROSCOPY 07/28/1987 - 07/27/1988 Arthroscopy knee CHOLECYSTECTOMY 03/10/2019 APPENDECTOMY SHOULDER ARTHROSCOPY Left JOINT REPLACEMENT 08/28/2023 Medical History Medical History Date Comments Irritable bowel syndrome Irritab le bowel disease Hx Other Medical Gastric Reflux Hx Other Medical Appendix Remove d 04/19/14 Hx Other Medical ACL Reconstruct ion 1988 Anxiety GERD (gastroesophageal reflux disease) Family History Medical History Relation Name Comments No Known Problems Brother COPD Father Mukesh Clotting disorder Father Mukesh Heart disease Father Mukesh Hyperlipidemia Father Mukesh Hypertension Father Mukesh Heart attack Maternal Grandfather Grandpa Winterer Arthritis Mother Mother Hyperlipidemia Mother Mother Hypertension Mother Mother Arthritis Other 1 Family history of Arthritis; Heart disease Other 2 Family history of Heart problems; Lung disease Other 3 Family history of Lung problems; Other Other 4 Family history of Diabetes mellitus type 1; Cancer Other 5 Family history of Cancer, unknown; Other Sister wegeners granul omatosis; Relation Name Status Comments Brother Alive Father Mukesh Alive Maternal Grandfather Grandpa Winterer Mother Mother Alive Other 1 Other 2 Other 3 Other 4 Other 5 Sister Social History Tobacco Use Types Packs/Day Years [...] on file Legal Sex Female 2:15 AM REGISTERED TRAVEL NURSE Gender Identity Female 12/15/2019 2:01 PM CDT Sexual Orientation Straight 12/15/2019 2: 01 PM CDT Obstetrics History Last Filed Vital Signs Vital Sign Reading Time Taken Comments Blood Pressure 132/81 08/03/2024 3:13 PM REGISTERED TRAVEL NURSE Pulse 76 01/13/2024 1:30 PM CDT verbal per patient Temperature 36.7 ??C (98 ??F) 12/02/2023 2:2 2 PM CDT Respiratory Rate 16 01/13/2023 11:4 1 AM CDT Oxygen Saturation 98% 08/03/2024 3:1 3 PM REGISTERED TRAVEL NURSE Inhaled Oxygen Concentration - - Weight 67.1 kg (148 lb) 08/03/2024 3:13 PM REGISTERED TRAVEL NURSE Height 172.7 cm (5' 8 ) 08/03/2024 3:13 PM REGISTERED TRAVEL NURSE Body Mass Index 22.5 08/03/2024 3:13 PM REGISTERED TRAVEL NURSE Plan of Treatment Health Maintenance Due Date Last Done Comments Cervical Cancer Screening 1972 Hepatitis C Screening 1972 DTaP/Tdap/Td Vaccine (1 - Tdap) 12/15/1983 Hepatitis B Screening 1990 Zoster Vaccine (1 of 2) 2022 Covid-19 Vaccine (3 - 2023- season) 2024 12/01/2020, 11/10/2020 Depression Screening 12/01/2024 12/02/2023, 04/28/2023, 12/26/2022, Additional history exists Regular Well Visit/Exam 18-64 12/01/2024 12/02/2023 Breast Cancer Screening-Mammogram 06/01/2025 06/01/2024, 03/07/2022 Colon Cancer Screening-Colonoscopy 12/17/2032 12/17/2022, 06/17/2018, 06/17/2018 Influenza Vaccine Completed 05/11/2024, , 05/06/2022, Additional history exists Pneumococcal vaccine <65 Aged Out No longer eligible based on patient's age to complete this topic Procedures Procedure Name Priority Date/Time Associated Diagnosis Comments HM MAMMOGRAPHY Routine 06/01/2024 8:46 AM REGISTERED TRAVEL NURSE COLONOSCOPY Routine 12/17/2022 1:57 PM CDT from Last 3 Months or Most Recently Relevant to Health Maintenance Results * HM MAMMOGRAPHY (06/01/2024 8:46 AM REGISTERED TRAVEL NURSE) us Historical Provider MD HEALTH MAINTENANCE Final Result * Colonoscopy (06/17/2018) Anatomical Region Laterality Modality Other Historical Provider ENDOSCOPY PROCEDURES Kelly l Result from Last 3 Months or Most Recently Relevant to Health Maintenance Insurance [employer] COVENTRY HMO/POS Care Teams Recreation Program Specialist Relationship Specialty Start Date End Date Jose Berry MD [address] [place] [address] PCP - General Family Medicine 04/09/23
--- OUTSIDE RECORDS SUMMARY | 2024-08-27 23:58 | XMS_ITS | Clinical Summary ---
Author Organization [facility] Address [address] [place] [address] Care Team Providers Care Global Sales Executive Name Role Phone Unavailable Primary Care Provider Unavailabl e Source Comments [facility],non-owned Affiliates and Associated Physician Practices is amultiple site organization consisting of ambulatory clinics and hospital sitesin [place], [place], [place] and [place]. This disclosure is being madepursuant to the Care Everywhere program and may not contain all information available regarding this patient. Last updated 18.[facility] Social History Tobacco Use Types Packs/Day Years Used Date Smoking Tobacco: Never Assessed Sex and Gender Information Value Date Recorded Sex Assigned at Not on file Gender Identity Not on file Sexual Orientation Not on file Plan of Treatment Health Maintenance Due Date Last Done Comments COLOGUARD (AGES 45-75) - COL ON CA SCREENING 1972 COLON MONITORING 1972 COLONOSCOPY - COLON CA SCREENING 1972 CT COLONOGRAPHY - COLON CA SCREENING 1972 Colorectal Cancer Screening 1972 FIT - COLON CA SCREENING 1972 FLEX SIG - COLON CA SCREENING 1972 LIPID TESTING 1972 MAMMOGRAM 1972 PAP SMEAR 1972 HIV SCREENING 12/15/1987 HEPATITIS C SCREENING 12/10/1990 DTAP/TDAP/TD VACCINES (1 - Tdap) 12/15/1991 HEPATITIS B VACCINE (1 of 3 - 19+ 3-dose series) 12/15/1991 PNEUMOCOCCAL VACCINE 50+ (1 of 1 - PCV) 2022 ZOSTER VACCINE (1 of 2) 2022 COVID-19 VACCINE ( - 2023-2 5 season) 2024 INFLUENZA VACCINE (#1) 2024 DEPRESSION SCREENING 07/28/2024 HIB VACCINE Aged Out No longer eligi ble based on patient's age to complete this topic HPV VACCINE Aged Out No longer eligi ble based on patient's age to complete this topic MENINGOCOCCAL (Group B) VACCINE Aged Out No longer eligible based on patient's age to complete this topic MENINGOCOCCAL VACCINE Aged Out No fidel carlos eligible based on patient's age to complete this topic PNEUMOCOCCAL VACCINE Aged Out No long er eligible based on patient's age to complete this topic
--- OUTSIDE RECORDS SUMMARY | 2024-08-27 23:58 | XMS_ITS | Clinical Summary ---
Author Organization [facility] Address [address] [address] [address] [place] [address] Care Team Providers Care Head Stock Operator Name Role Phone Jose Berry MD Primary Care Provider [phone] Allergies Active Allergy Reactions Criticality Noted Date Comments Ciprofloxacin Nausea and Vomiting 03/10/2019 Metronidazole Nausea Only 03/08/2019 Medications escitalopram 10 MG tablet Take 10 mg by mouth daily. Active ALPRAZolam 0.5 MG tablet Take 0.5 mg by mouth every 8 (eight) hours as needed for Sleep. Active RABEprazole Sodium 10 MG CAPSULE SPRINKLE Take 1 tablet by mouth daily as needed. Active omega-3 fatty acid 500 MG capsule Take 16,410 mg by mouth daily. Active Multiple Vitamins-Minera ls (MULTIVITAMIN ADULT) Tab Take 1 tablet by mouth daily. Active probiotic capsule Take 1 capsule by mouth 3 (three) times daily with meals. Active vitamin E 1000 UNIT Cap Take 1,000 Units by mouth daily. Active oxymetazoline 0.05 % nasal spray 2 sprays by Nasal route 2 (two) times daily. Active melatonin 5 MG tablet Take 3 mg by mouth nightly as needed. Active hydrocodone-silver taminophen (NORCO) 5-325 MG tablet Take 1-2 tablets by mouth every 4 (four) hours as needed for Pain. 30 tablet 03/10/2019 Active Active Problems No known active problems Family History Medical History Relation Comments Anxiety Brother COPD Father Cancer Father PROSTATE Heart Disease Father PACEMAKER PE Father AND DVT Anxiety Half-brother 1 Diabetes Half-brother 1 Anxiety Half-brother 2 Anxiety Half-sister 1 Defects Half-sister 1 HAND DEFECT Anxiety Half-sister 2 WAGENERS DISEASE Half-sister 2 Anxiety Mother Arthritis Mother Hypertension Mother Relation Status Comments Brother Alive Father Alive Half-brother 1 Alive Half-brother 2 Alive Half-sister 1 Alive Half-sister 2 Mother Alive Social History Tobacco Use Types Packs/Day Years Used Date Smoking Tobacco: Former Cigarettes 0 03/04/2010 - 03/04/2014 Smokeless Tobacco: Never Comments:SOCIALLY WHEN DRINK ING Alcohol Use Standard Drinks/Week Comments Yes 0 (1 standard drink = 0.6 oz pur e alcohol) OCCASIONALLY Comments Unknown Sex and Gender Information Value Date Recorded Sex Assigned at Not on file Legal Sex Female 7:47 PM CDT Gender Identity Not on file Sexual Orientation Not on file Last Filed Vital Signs Vital Sign Reading Time Taken Comments Blood Pressure 115/58 03/10/2019 11:40 AM CDT Pulse 92 03/10/2019 11:40 AM CDT Temperature 37.1 ??C (98.7 ??F) 03/10/2019 1 1:40 AM CDT Respiratory Rate 18 03/10/2019 11:4 0 AM CDT Oxygen Saturation 96% 03/10/2019 11: 40 AM CDT Inhaled Oxygen Concentration - - Weight 64.8 kg (142 lb 13.7 oz) 03/10/2019 6:22 AM CDT Height 172.7 cm (5' 8 ) 03/10/2019 6:22 AM CDT Body Mass Index 21.72 03/10/2019 6:22 AM CDT Plan of Treatment Health Maintenance Due Date Last Done Comments Cervical Cancer Screening Pa p Smear (Age 30 to 64) Every 3 Years 1972 Colorectal Cancer Screening Colonoscopy (10 Years) 1972 Annual Physical 12/15/1975 Hepatitis C 1990 DTaP, Tdap and Td Vaccines ( 1 - Tdap) 12/15/1991 Hepatitis B Vaccines (1 of 3 - 19+ 3-dose series) 12/15/1991 Cervical Cancer Screening Pa p with HPV Testing (Age 30 to 64) Every 5 Years 2002 Cervical Cancer Screening with HPV 2002 Mammogram Screening 2012 Zoster Vaccines (1 of 2) 2022 COVID-19 Vaccine (2023-2 5 season) 2024 Influenza Adult (#1) 2024 Meningococcal B Vaccine Aged Out No l onger eligible based on patient's age to complete this topic Meningococcal Vaccine Aged Out No fidel carlos eligible based on patient's age to complete this topic Pneumococcal Vaccine: Pediat rics (0 to 5 Years) and At-Risk Patients (6 to 64 Years) Aged Out No longer eligible b ased on patient's age to complete this topic RSV Immunizations Under 20 Months Aged Out No longer eligible based on patient's age to complete this topic Insurance [facility] Care Teams Head Stock Operator Relationship Specialty Start Date End Date Jose Berry MD PCP - General FAMILY PRACTICE 03/08/19
--- OUTSIDE RECORDS SUMMARY | 2024-08-27 23:58 | XMS_ITS | Clinical Summary ---
Author Organization [facility] Address [address] [place] [address] Care Team Providers Care Coding Compliance Specialist Name Role Phone Unavailable Primary Care Provider Unavailabl e Allergies No known active allergies Medications Medication Sig Dispensed Refills Start Date End Date Status LIDOCAINE HCL 2 % EX GEL apply to affected area as needed for discomfort qs 0 09/03/2002 Active GYNAZOLE-1 2 % VA CREA PV x 1 noc 1 0 09/03/2002 Active Surgical History Surgery Date Site/Laterality Comments FEMUR/KNEE SURG UNLISTED Unspecified femur/knee procedure INCISION OF HYMEN perforated hymen as at age 16 COLPOSCOPY BX CERVIX ENDOCER V CURR 1996 Colposcopy Medical History Medical History Date Comments Abnormal Papanicolaou smear of cervix and cervic al HPV approx 5 yrs ago Family History Medical History Relation Comments Cancer Maternal Grandmother lung Relation Status Comments Maternal Grandmother Social History Tobacco Use Types Packs/Day Years Used Date Smoking Tobacco: Never Alcohol Use Standard Drinks/Week Comments Yes 0 (1 standard drink = 0.6 oz pur e alcohol) social Sexually Active Control Partners Comments Yes Condom Male Sex and Gender Information Value Date Recorded Sex Assigned at Not on file Gender Identity Not on file Sexual Orientation Not on file Obstetrics History Last Filed Vital Signs Vital Sign Reading Time Taken Comments Blood Pressure 112/74 09/16/2002 9:45 AM MECHANIC/WELDER Pulse - - Temperature - - Respiratory Rate - - Oxygen Saturation - - Inhaled Oxygen Concentration - - Weight 63.5 kg (140 lb) 09/16/2002 9:45 AM MECHANIC/WELDER Height - - Body Mass Index - - Plan of Treatment Health Maintenance Due Date Last Done Comments Depression Screening 1984 DTaP/Tdap/Td Vaccine (1 - Tdap) 12/15/1991 Hepatitis B Vaccine (1 of 3 - 19+ 3-dose series) 12/15/1991 Breast Cancer Screening 2012 CT Colonography 2017 Cologuard 2017 Colonoscopy 2017 Colorectal Cancer Screen 2017 Fecal Occult Blood 2017 Sigmoidoscopy 2017 Pneumococcal Vaccine 50+ (1 of 1 - PCV) 2022 Shingles Vaccine (1 of 2) 2022 COVID-19 Vaccine ( - 2023-2 5 season) 2024 Influenza Vaccine (#1) 2024 HPV Vaccine Aged Out No longer eligi ble based on patient's age to complete this topic Hepatitis A Vaccine Aged Out No longe r eligible based on patient's age to complete this topic Meningococcal Serogroup B Vaccine Aged Out No longer eligible based on patient's age to complete this topic Meningococcal Vaccine Aged Out No fidel carlos eligible based on patient's age to complete this topic Pneumococcal Vaccine 0-49 Aged Out No longer eligible based on patient's age to complete this topic
--- OUTSIDE RECORDS SUMMARY | 2024-08-27 23:58 | XMS_ITS | Encounter Summary ---
Author Organization [facility] Address [address] [place] [address] Care Team Providers Care Triage Technician Name Role Phone Unavailable Primary Care Provider Unavailabl e Encounter Details Date Type Department Care Team (Late st Contact Info) Description 09/05/2022 Lab Requisition [facility] [address] [facility] [facility] [facility] [place] [address] Heath Watson MD [address] [place] [address] Social History Tobacco Use Types Packs/Day Years Used Date Smoking Tobacco: Never Assessed Sex and Gender Information Value Date Recorded Sex Assigned at Not on file Gender Identity Not on file Sexual Orientation Not on file documented as of this encounter Plan of Treatment Not on file documented as of this encounter Procedures Procedure Name Priority Date/Time Associated Diagnosis Comments DERMATOPATHOLOGY Routine 09/03/2022 3:33 AM GAS REGULATOR REPAIRER HELPER documented in this encounter Results * DERMATOPATHOLOGY (09/03/2022 3:33 AM GAS REGULATOR REPAIRER HELPER) Case Report Dermatopathology Report ? Case: [id number] ? Authorizing Provider: ??Heath Watson MD ?Collected: ? 09/03/2022 03:33 AM ? Ordering Location: ? [facility] ?Received: ?09/05/2022 09:19 AM ? Pathologist: ? Yin Harman MD ? Specimen: ?Skin, right clavicle ? 3 3:52 PM [facility] Final Diagnosis Specimen A. SKIN, right clavicle: SEBORRHEIC KERATOSIS, IRRITATED AND INFLAMED (L82.0) 3 3:52 PM [facility] Clinical History Irr Nevus vs. BCCA vs. Other Path# [id number] 3 3:52 PM [facility] Gross Description Specimen A: Received is one formalin filled container labeled with the patient's name and designated right clavicle. The specimen consists of a shave biopsy measuring 14x5x2 mm. Jar 0. 3 3:52 PM [facility] Microscopic Description Specimen A. SKIN, right clavicle: Sections show acanthosis, papillomatosis, hyperkeratosis, and squamous eddies. There is a lymphohistiocytic infiltrate within the papillary dermis. 3 3:52 PM [facility] Disclaimer An external and internal positive and negative controls are appropriate for the histochemical, immunohistochemical and immunofluorescence stain(s) in this case (if any), except where stated explicitly. The performance characteristics of the stain(s) cited in this report were developed and its performance characteristic determined by the Dermatopathology Laboratory at [facility], directed by Dr. Kinsey Nathan. These tests need not be, and therefore are not, approved by the [place] Food and Drug Administration. The tests are used for clinical purposes. Billing Codes Specimen Charges Stain Charges 27728 1 3 3:52 PM GAS REGULATOR REPAIRER HELPER DERMATOPATHOLOGY LABORATORY Embedded Images 3 3:52 PM GAS REGULATOR REPAIRER HELPER DERMATOPATHOLOGY LABORATORY Pathology/Cytolo gy TISSUE SPECIMEN FROM SKIN / Unknown 09/03/2022 3:33 AM GAS REGULATOR REPAIRER HELPER 09/05/2022 9:19 AM GAS REGULATOR REPAIRER HELPER Heath Watson MD LAB - PATHOLOGY/CYTO LOGY ORDERABLES DERMATOPATHOLOGY LABORATORY [facility] - Department of Dermatology [facility] Specialized Medicine [address] [place] [address], [address] [phone] documented in this encounter Visit Diagnoses Not on filedocumented in this encounter
[2024-08-28] VITALS (8 sets, daily range): BP systolic 104–126; BP diastolic 58–83; PULSE 98–115; RESP 13–22; TEMP 36.5; O2SAT 99–100
[2024-08-28 00:34] LABS: Basophils Percent Auto 0.3 % (0.2-1.2); Eosinophils Percent Auto 0.3 % (0-4.4); Hematocrit 50.9 % (37.0-47.0); Hemoglobin 17.4 g/dL (12.0-15.0); Immature Granulocyte Absolute 0.02 K/mm3 (0.00-0.031); Immature Granulocyte Percent A 0.2 % (0-0.5); Lymphocytes Absolute Auto 0.24 K/mm3 (0.9-3.2); Lymphocytes Percent Auto 2.1 % (18.3-44.2); Mean Corpuscular HGB Conc 34.2 g/dl (32-36); Mean Corpuscular Hemoglobin 31.6 pg (26-34); Mean Corpuscular Volume 92.5 fl (80-100); Mean Platelet Volume 9.4 fl (7.4-10.4); Monocytes Absolute Auto 0.5 K/mm3 (0.1-0.6); Monocytes Percent Auto 4.3 % (2.6-8.5); Neutrophils Absolute Auto 10.8 K/mm3 (1.3-6.7); Neutrophils Percent Auto 92.8 % (45.5-73.1); Platelet Count Result 190 k/mm3 (150-375); Red Cell Distribution Width 12.3 % (11.5-14.5); White Blood Count 11.6 K/mm3 (4.5-10.0)
[2024-08-28 00:38] LABS: BEDSIDEPREGUCG Negative (Negative)
[2024-08-28 00:44] LABS: Alanine Aminotransferase 24 U/L (6-35); Alkaline Phosphatase 79 U/L (38-126); Anion Gap 14 mmol/L (4-12); Aspartate Amino Transferase 25 U/L (14-36); Blood Urea Nitrogen 25 mg/dL (7-17); Calcium 10.5 mg/dL (8.4-10.2); Carbon Dioxide 24 mmol/L (22-30); Chloride 102 mmol/L (98-107); Estimated CRCL calculation 75 ml/min; Estimated Glomerular Filt Rate > 60; Glucose 140 mg/dL (65-110); Lipase 50 U/L (23-300); Potassium 4.4 mmol/L (3.4-5.0); Sodium 140 mmol/L (137-145)
[2024-08-28 00:46] LABS: Add Urine Microscopic? YES; Appearance Urine Cloudy (Clear); Bacteria Urine 1+ /hpf; Bilirubin Urine 1+ (Negative); Blood Urine 3+ (Negative); Color Urine Dark Yellow (Yellow); Glucose Urine UA Negative (Negative); Ketones Urine 3+ mg/dL (Negative); Leukocyte Esterase Ur 1+ LEU/UL (Negative); Mucus Urine Present /lpf; Need Manual Microscopic Reviewed; Nitrate Urine Negative (Negative); Protein Urine 1+ mg/dL (Negative); RBC Urine 51-100 /hpf (0-2); Specific Grav Ur 1.032 (1.001-1.035); Squamous Epithelial Cell Urine Moderate /hpf (Few); WBC Urine 21-50 /hpf (0-3); pH Urine 5.5 (5.0-9.0)
[2024-08-28 01:09] LABS: Influenza A QL RT-PCR Negative (Negative); Influenza B QL RT-PCR Negative (Negative); RSV RNA, RT-PCR Negative (Negative); SARS-CoV-2 RNA PCR Negative (Negative)
--- NOTE | 2024-08-28 02:18 | PC.NURSE ---
Patient given clear white soda upon request. ERP states okay for patient to eat and drink.
--- OUTSIDE RECORDS SUMMARY | 2024-08-28 02:20 | XMS_ITS | Referral Summary ---
Author Organization [facility] [address] Address [address] [place] [address] Care Team Providers Care Shook Splicer Name Role Phone Jose Berry MD Primary Care Provider [phone] Encounters Date Type Department Care Team Description 08/03/2024 3:30 PM CONTRACT PARALEGAL Telemedicine [facility] Family Medicine at [address] [place] [address] Jose Berry MD Subacute cough (Primary Dx) 07/30/2024 Telephone [facility] Medicine at [address] [place] [address] Jose Berry MD Prior Auth (Pantoprazole) from [...] total) by mouth daily 08/03/19 25 Active DESIGN DIRECTOR Thyroid 30 mg tablet Take 1 [...] a telephone or video visit during the [facility]-19 public health emergency to the patient. After being given an opportunity to ask questions about and discuss this type of visit, the patient verbally consented to proceeding with the telephone/video visit. The patient understands that this service replaces an office visit and they may be billed and/or responsible for any applicable copayments. @[email or web address]@ @[email or web address]@ Panic attacks 07/22/2017 11/20/2022 Gastroesophageal reflux disease [...] on file Legal Sex Female 2:15 AM CONTRACT PARALEGAL Gender Identity Female 12/15/2019 2:01 PM CDT Sexual Orientation Straight 12/15/2019 2: 01 PM CDT Last Filed Vital Signs Vital Sign Reading Time Taken Comments Blood Pressure 132/81 08/03/2024 3:13 PM CONTRACT PARALEGAL Pulse 76 01/13/2024 1:30 PM CDT verbal per patient Temperature 36.7 ??C (98 ??F) 12/02/2023 2:2 2 PM CDT Respiratory Rate 16 01/13/2023 11:4 1 AM CDT Oxygen Saturation 98% 08/03/2024 3:1 3 PM CONTRACT PARALEGAL Inhaled Oxygen Concentration - - Weight 67.1 kg (148 lb) 08/03/2024 3:13 PM CONTRACT PARALEGAL Height 172.7 cm (5' 8 ) 08/03/2024 3:13 PM CONTRACT PARALEGAL Body Mass Index 22.5 08/03/2024 3:13 PM CONTRACT PARALEGAL Plan of Treatment Not on file Procedures Procedure Name Priority Date/Time Associated Diagnosis Comments HM MAMMOGRAPHY Routine 06/01/2024 8:46 AM CONTRACT PARALEGAL COLONOSCOPY Routine 12/17/2022 1:57 PM CDT from Last 3 Months or Most Recently Relevant to Health Maintenance Results * HM MAMMOGRAPHY (06/01/2024 8:46 AM CONTRACT PARALEGAL) us Historical Provider HEALTH MAINTENANCE Final Result * Colonoscopy (06/17/2018) Anatomical Region Laterality Modality Other us Historical Provider ENDOSCOPY PROCEDURES Kelly l Result from Last 3 Months or Most Recently Relevant to Health Maintenance Insurance [employer] COVENTRY HMO/POS Care Teams Shook Splicer Relationship Specialty Start Date End Date Jose Berry MD [address] [place] [address] PCP - General Family Medicine 04/09/23
--- OUTSIDE RECORDS SUMMARY | 2024-08-28 02:20 | XMS_ITS | Clinical Summary ---
Author Organization [facility] Address [address] [place] [address] Care Team Providers Care Contract Engineer Name Role Phone Unavailable Primary Care Provider Unavailabl e Source Comments [facility],non-owned Affiliates and Associated Physician Practices is amultiple site organization consisting of ambulatory clinics and hospital sitesin [place], [place], [place] and [place]. This disclosure is being madepursuant to the Care Everywhere program and may not contain all information available regarding this patient. Last updated 18.[facility] [employer] Social History Tobacco Use Types Packs/Day Years [...]
--- OUTSIDE RECORDS SUMMARY | 2024-08-28 02:21 | XMS_ITS | Clinical Summary ---
Author Organization [facility] [address] Address [address] [place] [address] Care Team Providers Care Assembler Movement Name Role Phone Jose Berry MD Primary Care Provider [phone] Allergies Active Allergy Reactions Criticality Noted Date [...] total) by mouth daily 08/03/19 25 Active HEALTH INFORMATICS ADVISOR Thyroid 30 mg tablet Take 1 tablet [...] billed and/or responsible for any applicable copayments. @[email or web address]@ [email or web address] Panic attacks 07/22/2017 11/20/2022 Gastroesophageal reflux disease [...] Department Care Team Description 08/03/2024 3:30 PM STRAWHAT SIZER Telemedicine [facility] Family Medicine at [address] [address] Jose Berry MD Subacute cough (Primary Dx) 07/30/2024 Telephone [facility] Medicine at [address] [place] [phone] Jose Berry MD Prior Auth (Pantoprazole) from [...] on file Legal Sex Female 2:15 AM STRAWHAT SIZER Gender Identity Female 12/15/2019 2:01 PM CDT Sexual Orientation Straight 12/15/2019 2: 01 PM CDT Obstetrics History Last Filed Vital Signs Vital Sign Reading Time Taken Comments Blood Pressure 132/81 08/03/2024 3:13 PM STRAWHAT SIZER Pulse 76 01/13/2024 1:30 PM CDT verbal per patient Temperature 36.7 ??C (98 ??F) 12/02/2023 2:2 2 PM CDT Respiratory Rate 16 01/13/2023 11:4 1 AM CDT Oxygen Saturation 98% 08/03/2024 3:1 3 PM STRAWHAT SIZER Inhaled Oxygen Concentration - - Weight 67.1 kg (148 lb) 08/03/2024 3:13 PM STRAWHAT SIZER Height 172.7 cm (5' 8 ) 08/03/2024 3:13 PM STRAWHAT SIZER Body Mass Index 22.5 08/03/2024 3:13 PM STRAWHAT SIZER Plan of Treatment Health Maintenance Due Date [...] Comments HM MAMMOGRAPHY Routine 06/01/2024 8:46 AM STRAWHAT SIZER COLONOSCOPY Routine 12/17/2022 1:57 PM CDT from Last 3 Months or Most Recently Relevant to Health Maintenance Results * HM MAMMOGRAPHY (06/01/2024 8:46 AM STRAWHAT SIZER) us Historical Provider MD HEALTH MAINTENANCE Final Result * Colonoscopy (06/17/2018) Anatomical Region Laterality Modality Other Historical Provider ENDOSCOPY PROCEDURES Kelly l Result from Last 3 Months or Most Recently Relevant to Health Maintenance Insurance [employer] COVENTRY HMO/POS Care Teams Assembler Movement Relationship Specialty Start Date End Date Jose Berry MD [address] [place] [address] PCP - General Family Medicine 04/09/23
--- OUTSIDE RECORDS SUMMARY | 2024-08-28 02:21 | XMS_ITS | Clinical Summary ---
Author Organization [facility] [address] [facility] Address [address] [place] [address] Care Team Providers Care Cone Chocolate Dipper Name Role Phone Jose Berry MD Primary Care Provider [phone] Social History Tobacco Use Types Packs/Day Years Used Date Smoking Tobacco: Never Assessed Comments Unknown Sex and Gender Information Value Date Recorded Sex Assigned at Female 06/22/2024 5:35 PM EQUAL OPPORTUNITY ASSISTANT Legal Sex Female 11:11 AM CDT Gender Identity Female 06/22/2024 5:35 PM EQUAL OPPORTUNITY ASSISTANT Sexual Orientation Not on file Plan of Treatment Health Maintenance Due Date Last Done Comments DTAP/TDAP/TD VACCINES (1 - Tdap) 12/15/1991 HEPATITIS B VACCINES (1 of 3 - 19+ 3-dose series) 12/15/1991 CERVICAL CANCER SCREENING 2002 BREAST CANCER SCREENING 2012 COLORECTAL SCREENING 2017 Colorectal Cancer Screening 2017 FIT-DNA Q 3 years 2017 FIT/FOBT Q 1 year 2017 Flex Sig/CT Colonography Q 5 years 2017 ZOSTER VACCINE (1 of 2) 2022 INFLUENZA VACCINE (#1) 2024 05/09/2022 PNEUMOCOCCAL VACCINE 0-64 YEARS Aged Out No longer eligible based on patient's age to complete this topic Care Teams Cone Chocolate Dipper Relationship Specialty Start Date End Date Jose Berry MD PCP - General Family Practice 01/25/19
--- OUTSIDE RECORDS SUMMARY | 2024-08-28 02:21 | XMS_ITS | Referral Summary ---
Author Organization [facility] Address [address] [place] [address] Care Team Providers Care Body Technician/Painter Name Role Phone Unavailable Primary Care Provider [...] Comments Blood Pressure 112/74 09/16/2002 9:45 AM LONGWALL FOREMAN Pulse - - Temperature - - Respiratory Rate - - Oxygen Saturation - - Inhaled Oxygen Concentration - - Weight 63.5 kg (140 lb) 09/16/2002 9:45 AM LONGWALL FOREMAN Height - - Body Mass Index - - Plan of Treatment Not on file
--- OUTSIDE RECORDS SUMMARY | 2024-08-28 02:21 | XMS_ITS | Referral Summary ---
Author Organization [facility] Address [address] [facility] [place] [address] Care Team Providers Care Sweatband Shaper Name Role Phone Unavailable Primary Care Provider Unavailabl e Source Comments [facility],non-owned Affiliates and Associated Physician Practices is amultiple site organization consisting of ambulatory clinics and hospital sitesin [place], [place] and [place]. This disclosure is being madepursuant to the Care Everywhere program and may not contain all information available regarding this patient. Last updated 18.[facility] Social History Tobacco Use Types Packs/Day Years Used Date Smoking Tobacco: Never Assessed Sex and Gender Information Value Date Recorded Sex Assigned at Not on file Gender Identity Not on file Sexual Orientation Not on file Plan of Treatment Not on file
--- OUTSIDE RECORDS SUMMARY | 2024-08-28 02:21 | XMS_ITS | Encounter Summary ---
Author Organization [facility] Care Team Providers Care Dirt Bike Mechanic Name Role Phone Jose Berry MD Primary Care Provider [phone] Jose Berry MD Primary Care Provider [phone] Encounter Details Date Type Department Care Team (Latest Contact Info) Description 08/28/2016 Orders Only [facility] CLINCON[facility] ProviderEpi MD [address] [place] [address] Social History Tobacco Use Types Packs/Day Years Used Date Smoking Tobacco: Never Assessed Alcohol Use Standard Drinks/Week Comments Yes 0 (1 standard drink = 0.6 oz pur e alcohol) Comments Unknown Sex and Gender Information Value Date Recorded Sex Assigned at Not on file Legal Sex Female 2:15 AM OFFICER CAPTAIN Gender Identity Female 12/15/2019 2:01 PM CDT Sexual Orientation Straight 12/15/2019 2: 01 PM CDT documented as of this encounter Plan of Treatment Not on file documented as of this encounter Procedures Procedure Name Priority Date/Time Associated Diagnosis Comments SCAN - LABS 08/29/2016 12:00 AM OFFICER CAPTAIN documented in this encounter Results * SCAN - LABS (08/29/2016 12:00 AM OFFICER CAPTAIN) Narrative 08/29/2016 12:00 AM OFFICER CAPTAIN Ordered by an unspecified provider. us Historical Provider Final Res ult documented in this encounter Visit Diagnoses Not on filedocumented in this encounter Care Teams Dirt Bike Mechanic Relationship Specialty Start Date End Date Jose Berry MD PCP - General 03/16/15 04/08/23 Jose Berry MD [address] [place] [address] [place] [address] PCP - General Family Medicine 04/09/23 documented as of this encounter
--- OUTSIDE RECORDS SUMMARY | 2024-08-28 02:21 | XMS_ITS | Clinical Summary ---
Author Organization [facility] Address [address] [place] [address] Care Team Providers Care Fashion Editor Name Role Phone Unavailable Primary Care Provider [...] Comments Blood Pressure 112/74 09/16/2002 9:45 AM SHELF STOCKER Pulse - - Temperature - - Respiratory Rate - - Oxygen Saturation - - Inhaled Oxygen Concentration - - Weight 63.5 kg (140 lb) 09/16/2002 9:45 AM SHELF STOCKER Height - - Body Mass Index - [...]
--- OUTSIDE RECORDS SUMMARY | 2024-08-28 02:21 | XMS_ITS | Clinical Summary ---
Author Organization [facility] Address [address] [place] [address] [place] [address] Care Team Providers Care Fiber Technician Name Role Phone Jose Berry MD Primary Care Provider [phone] Allergies Active Allergy Reactions Criticality Noted Date [...] patient's age to complete this topic Insurance [facility] Care Teams Fiber Technician Relationship Specialty Start Date End Date Jose Berry MD PCP - General FAMILY PRACTICE 03/08/19
--- OUTSIDE RECORDS SUMMARY | 2024-08-28 02:21 | XMS_ITS | Patient Health Summary ---
Author Organization [facility] Address [address] [place] [address] Care Team Providers Care Java Developer Analyst Name Role Phone Unavailable Primary Care Provider Unavailabl e Note from [facility],non-owned Affiliates and Associated Physician Practices is amultiple site organization consisting of ambulatory clinics and hospital sitesin [place], [place] and [place]. This disclosure is being madepursuant to the Care Everywhere program and may not contain all information available regarding this patient. Last updated 18.[facility] Social History Tobacco Use Types Packs/Day Years Used Date Smoking Tobacco: Never Assessed Sex and Gender Information Value Date Recorded Sex Assigned at Not on file Gender Identity Not on file Sexual Orientation Not on file Procedures * DERMATOPATHOLOGY(Performed 09/03/2022) Results * DERMATOPATHOLOGY (09/03/2022 3:33 AM AIRPORT BAGGAGE SCREENER) Case Report Dermatopathology Report ? Case: [id number] ? Authorizing Provider: ??Heath Watson MD ?Collected: ? 09/03/2022 03:33 AM ? Ordering Location: ? [facility] ?Received: ?09/05/2022 09:19 AM ? Pathologist: ? Yin Harman MD ? Specimen: ?Skin, right clavicle ? 3 3:52 PM [facility] DERMATOPATHOLOGY LABORATORY Final Diagnosis Specimen A. SKIN, right clavicle: SEBORRHEIC KERATOSIS, IRRITATED AND INFLAMED (L82.0) 3 3:52 PM [facility] DERMATOPATHOLOGY LABORATORY Clinical History Irr Nevus vs. BCCA vs. Other Path# [id number] 3 3:52 PM [facility] DERMATOPATHOLOGY LABORATORY Gross Description Specimen A: Received is one formalin filled container labeled with the patient's name and designated right clavicle. The specimen consists of a shave biopsy measuring 14x5x2 mm. Jar 0. 3 3:52 PM [facility] DERMATOPATHOLOGY LABORATORY Microscopic Description Specimen A. SKIN, right clavicle: Sections show acanthosis, papillomatosis, hyperkeratosis, and squamous eddies. There is a lymphohistiocytic infiltrate within the papillary dermis. 3 3:52 PM [facility] DERMATOPATHOLOGY LABORATORY Disclaimer An external and internal positive and negative controls are appropriate for the histochemical, immunohistochemical and immunofluorescence stain(s) in this case (if any), except where stated explicitly. The performance characteristics of the stain(s) cited in this report were developed and its performance characteristic determined by the Dermatopathology Laboratory at [facility], directed by Dr. Kinsey Nathan. These tests need not be, and therefore are not, approved by the [place] Food and Drug Administration. The tests are used for clinical purposes. Billing Codes Specimen Charges Stain Charges 69586 1 3 3:52 PM [facility] DERMATOPATHOLOGY LABORATORY Embedded Images 3 3:52 PM [facility] DERMATOPATHOLOGY LABORATORY Pathology/Cytolo gy TISSUE SPECIMEN FROM SKIN / Unknown 09/03/2022 3:33 AM AIRPORT BAGGAGE SCREENER 09/05/2022 9:19 AM AIRPORT BAGGAGE SCREENER Heath Watson MD LAB - PATHOLOGY/CYTO LOGY ORDERABLES DERMATOPATHOLOGY LABORATORY [facility] - Department of Dermatology [facility] Specialized Medicine [address] [place] [address], [address] [phone]
--- OUTSIDE RECORDS SUMMARY | 2024-08-28 02:21 | XMS_ITS | Encounter Summary ---
Author Organization [facility] Facility Care Team Providers Care Logistics Account Manager Name Role Phone Jose Berry MD Primary Care Provider [phone] Jose Berry MD Primary Care Provider [phone] Encounter Details Date Type Department Care Team (Latest Contact Info) Description 06/17/2018 Orders Only [facility] CLINCONV ProviderEpi MD [address] [place] [address] Social History Tobacco Use Types Packs/Day Years Used Date Smoking Tobacco: Never Assessed Alcohol Use Standard Drinks/Week Comments Yes 0 (1 standard drink = 0.6 oz pur e alcohol) Comments Unknown Sex and Gender Information Value Date Recorded Sex Assigned at Not on file Legal Sex Female 2:15 AM DEVELOPER PROVER MECHANICAL Gender Identity Female 12/15/2019 2:01 PM CDT Sexual Orientation Straight 12/15/2019 2: 01 PM CDT documented as of this encounter Plan of Treatment Not on file documented as of this encounter Procedures Procedure Name Priority Date/Time Associated Diagnosis Comments PROCEDURE - RESULT 06/26/2018 12 :00 AM DEVELOPER PROVER MECHANICAL documented in this encounter Results * PROCEDURE - RESULT (06/26/2018 12:00 AM DEVELOPER PROVER MECHANICAL) Narrative 06/26/2018 12:00 AM DEVELOPER PROVER MECHANICAL Ordered by an unspecified provider. us Historical Provider Final Res ult documented in this encounter Visit Diagnoses Not on filedocumented in this encounter Care Teams Logistics Account Manager Relationship Specialty Start Date End Date Jose Berry MD PCP - General 03/16/15 04/08/23 Jose Berry MD [address] [place] [address] [place] [address] PCP - General Family Medicine 04/09/23 documented as of this encounter
--- OUTSIDE RECORDS SUMMARY | 2024-08-28 02:21 | XMS_ITS | Encounter Summary ---
Author Organization [facility] Address [address] [facility] [address] Care Team Providers Care Harness Installer Name Role Phone Unavailable Primary Care Provider Unavailabl e Encounter Details Date Type Department Care Team (Late st Contact Info) Description 09/05/2022 Lab Requisition [facility] [address] [facility] [facility] [place] [address] Heath Watson MD [address] [place] [address] Social History Tobacco Use Types [...] Diagnosis Comments DERMATOPATHOLOGY Routine 09/03/2022 3:33 AM ROLLER SKATES ASSEMBLER documented in this encounter Results * DERMATOPATHOLOGY (09/03/2022 3:33 AM ROLLER SKATES ASSEMBLER) Case Report Dermatopathology Report ? Case: [id number] ? Authorizing Provider: ??Heath Watson MD ?Collected: ? 09/03/2022 03:33 AM ? Ordering Location: ? [facility] ?Received: ?09/05/2022 09:19 AM ? Pathologist: ? Yin Harman MD ? Specimen: ?Skin, right clavicle ? 3 3:52 PM [facility] DERMATOPATHOLOGY LABORATORY Final Diagnosis Specimen A. SKIN, right clavicle: SEBORRHEIC KERATOSIS, IRRITATED AND INFLAMED (L82.0) 3 3:52 PM [facility] DERMATOPATHOLOGY LABORATORY Clinical History Irr Nevus vs. BCCA vs. Other Path# [id number] 3 3:52 PM [facility] DERMATOPATHOLOGY LABORATORY Gross Description Specimen A: Received is one formalin filled container labeled with the patient's name and designated right clavicle. The specimen consists of a shave biopsy measuring 14x5x2 mm. Jar 0. 3 3:52 PM [facility] DERMATOPATHOLOGY LABORATORY Microscopic Description Specimen A. SKIN, right clavicle: Sections show acanthosis, papillomatosis, hyperkeratosis, and squamous eddies. There is a lymphohistiocytic infiltrate within the papillary dermis. 3 3:52 PM [facility] DERMATOPATHOLOGY LABORATORY Disclaimer An external and internal positive and negative controls are appropriate for the histochemical, immunohistochemical and immunofluorescence stain(s) in this case (if any), except where stated explicitly. The performance characteristics of the stain(s) cited in this report were developed and its performance characteristic determined by the Dermatopathology Laboratory at [facility], directed by Dr. Kinsey Nathan. These tests need not be, and therefore are not, approved by the [place] Food and Drug Administration. The tests are used for clinical purposes. Billing Codes Specimen Charges Stain Charges 82589 1 3 3:52 PM ROLLER SKATES ASSEMBLER DERMATOPATHOLOGY LABORATORY Embedded Images 3 3:52 PM ROLLER SKATES ASSEMBLER DERMATOPATHOLOGY LABORATORY Pathology/Cytolo gy TISSUE SPECIMEN FROM SKIN / Unknown 09/03/2022 3:33 AM ROLLER SKATES ASSEMBLER 09/05/2022 9:19 AM ROLLER SKATES ASSEMBLER Heath Watson MD LAB - PATHOLOGY/CYTO LOGY ORDERABLES DERMATOPATHOLOGY LABORATORY [facility] - Department of Dermatology [facility] Medicine [address] [place] [address], [address] [phone] documented in this encounter Visit Diagnoses Not on filedocumented in this encounter
[2024-08-28] MEDS: ONDANSETRON INJ 4 MG/2 ML VIAL IV PUSH (02:34)
[2024-08-28] MEDS: SODIUM CHLORIDE 0.9% IV 1,000 ML 999 ML IV CONT (02:34)
--- NOTE | 2024-08-28 03:33 | PC.NURSE ---
Patient states she is feeling much better. patient denies any nausea since zofran administration and also states I also haven't had the urge to have a BM, so I feel much better. ERP notified.
--- NOTE | 2024-08-28 03:57 | ED_ITS ---
HPI - Nausea/Vomiting/Diarrhea General Chief complaint: Nausea/Vomiting/Diarrhea Stated complaint: Been vomiting and diarrhea for past five hours Time Seen by Provider: 08/28/24 02:04 History of Present Illness HPI Narrative: Patient is a 53-year-old female who presents ER with nausea vomiting and diarrhea. Ongoing for 5 hours prior to arrival. had some diarrhea after going [place] but that abated 1 week ago. No fevers. Does not think she ate any spoiled food because her ate similar meals. No alleviating factors. Feels dehydrated. Related Data Home Medications ?Medication ?Instructions ?Recorded ?Confirmed ?Last Taken ?Type alprazolam 0.5 mg tablet 0.5 mg PO DAILY PRN Anxiety 03/14/21 02/09/24 Unknown History duloxetine 20 mg capsule,delayed 20 mg PO BID 02/09/24 02/09/24 Unknown History release (Cymbalta) pantoprazole 40 mg tablet,delayed 40 mg PO QAM 02/09/24 02/09/24 Unknown History release thyroid (pork) 30 mg tablet ([employer]ECUTIVE mg 07/07/24 Unknown History Thyroid) Allergies Allergy/AdvReac Type Severity Reaction Status Date / Time hydrocodone Allergy Mild Itching Verified 08/28/24 02:16 ciprofloxacin AdvReac Intermediate Nausea and Verified 08/28/24 02:16 Vomiting metronidazole AdvReac Mild Nausea Verified 08/28/24 02:16 Review of Systems 2 Review of Systems: All systems reviewed & are unremarkable except as noted in HPI and below Constitutional: Constitutional: Reports no additional constitutional complaints Cardiovascular: Cardiovascular: Reports no additional cardiovascular complaints Respiratory: Respiratory: Reports no additional respiratory complaints Gastrointestinal: Gastrointestinal: Reports no additional gastrointestinal complaints Musculoskeletal: Musculoskeletal: Reports no additional musculoskeletal complaints [facility] Past Medical History Medical History Screening mammogram, encounter for Abnormal Pap smear of cervix 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 Normal colonoscopy 04/19/08 06/23/18 negative rpt in 10 years Gallstones (~2017) Staph infection (~2007) buttocks Frequent headaches Herpes simplex type 2 infection Seizures age 6 y/o History of stress test History of injury of tendon (~2015) Left shoulder torn labrum Anxiety Surgical History Surgical History H/O shoulder replacement (08/28/23) left shoulder History of cholecystectomy History of shoulder surgery (08/24/15) History of laparoscopy 09/17/07 dx lscope--ablation, endometriosis History of cone biopsy of cervix 04/13/96 History of colposcopy with cervical biopsy 03/15/96 [facility] JESUS I History of reconstruction of anterior cruciate ligament tear (~1987) rt knee History of cholecystectomy (03/10/19) History of appendectomy (04/19/14) Family History Family History Other Carcinoma of colon paternal uncle Malignant tumor of ovary paternal aunt Father Skin cancer Aneurysm Sibling Diabetes mellitus brother Hypertension brother Mother Hypertension Other Anxiety Autosomal recessive severe combined immunodeficiency disease COPD (chronic obstructive pulmonary disease) Family history of Hodgkin's lymphoma Heart disease Hyperlipidemia Social History Social History Smoking status: Never smoker Second hand tobacco smoke exposure: No Alcohol intake: current Alcohol use details: 2 days a week Substance use: never Substance use type: does not use Do You Feel Safe in your Home?: Yes Lack of Transportation: No Lack of Food: Never True Current Housing: I Have Housing Concerned About Future Housing: No Difficulty Paying Gas/Electric Bills: No Difficulty Paying for Meds: No Currently Unemployed: No Education: High School Diploma/GED Difficulty w/ Childcare or Family Care: No Living arrangements: with family Additional living arrangements comments: Occupation/Education: occupation 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 HEAD: Normocephalic, atraumatic. ENT: Dry mucous membranes NECK: Supple. CHEST: Clear to auscultation. No respiratory distress. HEART: Regular rate and rhythm. Normal peripheral pulses. ABDOMEN: Soft, nontender, nondistended. EXTREMITIES: Normal range of motion. No edema. SKIN: Warm, dry, no rash. NEURO: Alert and oriented x3. PSYCH: Normal mood and affect. Course Course Emergency Course: Patient feels markedly improved after Zofran and fluids. Discharge home with supportive care. Vital Signs Vital signs: Vital Signs Temperature 97.7 F 08/28/24 00:17 Pulse Rate 104 H 08/28/24 00:17 Respiratory Rate 17 08/28/24 00:17 Blood Pressure 116/60 08/28/24 00:17 Pulse Oximetry 100 08/28/24 00:17 Oxygen Delivery Room Air 08/28/24 00:17 Temperature 97.7 F 08/28/24 00:17 Pulse Rate 101 H 08/28/24 02:34 Respiratory Rate 16 08/28/24 02:34 Blood Pressure 126/83 08/28/24 02:17 Pulse Oximetry 100 08/28/24 02:34 Oxygen Delivery Room Air 08/28/24 00:17 MDM - Nausea/Vomiting/Diarrhea Lab Data 08/28/24 00:25 08/28/24 00:25 Labs: Lab Results 08/28/24 08/28/24 08/28/24 Range/Units 00:25 00:33 00:35 WBC 11.6 H (4.5-10.0) K/mm3 RBC 5.50 H (4.2-5.4) M/mm3 Hgb 17.4 H D (12.0-15.0) g/dL Hct 50.9 H (37.0-47.0) % MCV 92.5 (80-100) fl MCH 31.6 (26-34) pg MCHC 34.2 (32-36) g/dl RDW 12.3 (11.5-14.5) % Plt Count 190 (150-375) k/mm3 MPV 9.4 (7.4-10.4) fl Immature Gran % (Auto) 0.2 (0-0.5) % Neut % (Auto) 92.8 H (45.5-73.1) % Lymph % (Auto) 2.1 L (18.3-44.2) % [place] % (Auto) 4.3 (2.6-8.5) % Eos % (Auto) 0.3 (0-4.4) % Baso % (Auto) 0.3 (0.2-1.2) % Lymph # (Auto) 0.24 L (0.9-3.2) K/mm3 [place] # (Auto) 0.5 (0.1-0.6) K/mm3 Eos # (Auto) 0.0 (0-0.3) K/mm3 Baso # (Auto) 0.0 (0.0-0.1) K/mm3 Abs Immat Gran (auto) 0.02 (0.00-0.031) K/mm3 Absolute Neuts (auto) 10.8 H (1.3-6.7) K/mm3 Absolute Nucleated RBC 0.000 (0.0-0.012) K/mm3 Nucleated RBC % 0.0 (0.0-0.2) % Sodium 140 (137-145) mmol/L Potassium 4.4 (3.4-5.0) mmol/L Chloride 102 (98-107) mmol/L Carbon Dioxide 24 (22-30) mmol/L Anion Gap 14 H (4-12) mmol/L BUN 25 H (7-17) mg/dL Creatinine 0.78 (0.7-1.0) mg/dL Estim Creat Clear Calc 75 ml/min Estimated GFR > 60 (59 - ) Glucose 140 H (65-110) mg/dL Calcium 10.5 H (8.4-10.2) mg/dL Total Bilirubin 1.0 (0.2-1.3) mg/dL AST 25 (14-36) U/L ALT 24 (6-35) U/L Alkaline Phosphatase 79 (38-126) U/L Total Protein 9.0 H (6.3-8.2) g/dL Albumin 5.0 (3.5-5.1) g/dL Lipase 50 (23-300) U/L Urine Color Dark yellow (Yellow) Urine Appearance Cloudy H (Clear) Urine pH 5.5 (5.0-9.0) Ur Specific [place] 1.032 (1.001-1.035) Urine Protein 1+ H (Negative) mg/dL Urine Glucose (UA) Negative (Negative) mg/dL Urine Ketones 3+ H (Negative) mg/dL Ur Blood (Man) 3+ H (Negative) Urine Nitrate Negative (Negative) Urine Bilirubin 1+ H (Negative) Urine Urobilinogen 1.0 (<2.0) mg/dL Add Ur Microanalysis Reviewed Leukocyte Esterase Rfl 1+ H (Negative) CHELSEY/UL Urine RBC 51-100 H (0-2) /hpf Urine WBC 21-50 H (0-3) /hpf Ur Squamous Epith Cells Moderate (Few) /hpf Urine Bacteria 1+ H /hpf Urine Casts 11-20 Urine Mucus Present /lpf POC Urine HCG, Qual Negative (Negative) Influenza A (RT-PCR) Negative (Negative) Influenza B (RT-PCR) Negative (Negative) RSV (RT-PCR) Negative (Negative) SARS-CoV-2 RNA (RT-PCR) Negative (Negative) Discharge Plan Discharge Clinical Impression: Gastroenteritis Patient Disposition: Home, Self-Care Condition: Stable Instructions: Gastroenteritis (ED) Additional Instructions: Please drink plenty of fluids at home. Return to the emergency department if you develop high fevers, have persistent severe abdominal pain, or have bloody stools or vomit, as these could be signs of a more serious medical emergency. Return to the emergency department if you are unable to keep down liquids because of severe nausea/vomiting. Patient Language: Danish Prescriptions: No Action alprazolam 0.5 mg tablet 0.5 mg PO DAILY PRN (Reason: Anxiety) thyroid (pork) [[employer] EXECUTIVE Thyroid] 30 mg tablet codeine-guaifenesin 10-100 mg/5 mL liquid 5 ml PO Q6H PRN (Reason: cough) Qty: 120 0RF pantoprazole 40 mg tablet,delayed release (DR/EC) 40 mg PO QAM duloxetine [Cymbalta] 20 mg capsule,delayed release(DR/EC) 20 mg PO BID estradiol 1 mg tablet 1 mg PO DAILY Qty: 90 3RF progesterone micronized [Prometrium] 200 mg capsule 200 mg PO QHS Qty: 90 3RF Follow-up/Referrals: Kristi,Jose Perkins MD [Primary Care Provider] - 1 Week
== END 2024-08-28 04:26 | disposition home or self-care (01) ==
PROVIDERS: Emergency Provider Emergency Medicine; PCP Family Medicine
DX: K52.9 Noninfective gastroenteritis and colitis, unspecified (principal); Z20.822 Contact with and (suspected) exposure to COVID-19; F41.9 Anxiety disorder, unspecified; Z96.612 Presence of left artificial shoulder joint; Z90.49 Acquired absence of other specified parts of digestive tract
CPT/HCPCS: 36415; 80053; 81001; 81025; 83690; 85025; 87637; 96361; 96374; 99284; J2405; J7030